=== PATIENT | female | born 1960 | race Caucasian/White ===

== ENCOUNTER 2016-11-06 11:24 | Emergency (ER) | payer MEDICARE, OTHER ==
[2016-11-06 14:34] LABS: Urine Bilirubin Negative (Negative); Urine Glucose Negative (Negative); Urine Nitrite Negative (Negative)
--- NOTE | 2016-11-06 17:08 | RAD ---
Indication: Urinary retention. Real-time sonography of the kidneys was performed. The right kidney measures 10.3 x 4.5 x 4.8 cm with fullness of the right renal collecting system. Left kidney measures 10.3 x 4.4 x 4.1 cm with no hydronephrosis. The spleen is visualized and may be slightly enlarged. IMPRESSION: The spleen may be slightly enlarged. No hydronephrosis is noted.
[2016-11-06 18:09] VITALS: BP 149/103
--- NOTE | 2016-12-16 11:36 | ED ---
GI/ HPI - HPI Summary HPI Summary: Patient presents with one week of burning urination, frequency and a sensation of "fullness" of her bladder. She has not been able to urinate for the past day and worries she has a UTI, since she has a history of these. She denies flank pain, fever, chills, or blood in her urine. She is bipolar and is having difficulty managing her thoughts around her pain, and as much as she hates seeking treatment, she thought she needed to be seen today. - History of Current Complaint Chief Complaint: EDUrogenitalProblems Time Seen by Provider: 11/06/16 14:15 Stated Complaint: PAINFUL TO URINATE Hx Obtained From: Patient Onset/Duration: Started Hours Ago, Atraumatic Timing: Constant Severity: Moderate Current Severity: Moderate Pain Intensity: 5 Location of Pain: Suprapubic Pain Characteristics: Dull, Aching, Pressure Associated Signs and Symptoms: Positive: UTI Symptoms Aggravating Factor(s): Nothing Alleviating Factor(s): Nothing - Additional Pertinent History Primary Care Physician: NANCY - Allergy/Home Medications Allergies/Adverse Reactions: Allergies Allergy/AdvReac Type Severity Reaction Status Date / Time Sulfa Drugs Allergy Unknown Unknown Verified 11/06/16 11:31 Reaction Details Oxycodone [From Oxycontin] AdvReac Severe "MADE ME Verified 11/06/16 11:31 SICK" Zolpidem [From Ambien] AdvReac Severe STIMULANT Verified 11/06/16 11:31 Chlorpromazine AdvReac See Comment Verified 11/06/16 11:31 [From Thorazine] SOME PSYCHIATRIC MEDS AdvReac Severe SEE Uncoded 11/06/16 11:31 COMMENTS PMH/Surg Hx/FS Hx/Imm Hx Endocrine/Hematology History: Reports: Hx Diabetes, Hx Thyroid Disease - Jana's, Hx Anemia - HAS INJECTIONS Cardiovascular History: Reports: Hx Hypertension, Hx Valvular Heart Disease - MVP Denies: Hx Congestive Heart Failure, Hx Pacemaker/ICD Respiratory History: Reports: Hx Asthma Denies: Hx Chronic Obstructive Pulmonary Disease (COPD) GI History: Reports: Hx Gastroesophageal Reflux Disease, Hx Ulcer - 1979 History: Denies: Hx Dialysis, Hx Renal Disease - HISTORIC RENAL INSUFF Musculoskeletal History: Reports: Hx Arthritis - KNEES, Hx Fibromyalgia, Hx Orthopedic Injury - right hip Denies: Other Musculoskeletal History Sensory History: Reports: Hx Contacts or Glasses Denies: Hx Hearing Aid Opthamlomology History: Reports: Hx Contacts or Glasses Neurological History: Reports: Hx Developmental Delay, Hx Headaches - AT TIMES Psychiatric History: Reports: Hx Anxiety - ON MEDS, Hx Depression - ON MEDS, Hx Inpatient Treatment - pt's [facility] counselor said pt admitted [facility] [place] [place] in 2015, Hx Community Mental Health Tx, Hx Schizophrenia, Hx Bipolar Disorder, Hx Suicide Attempt - unclear; pt does not admit to self harm, but admits frequent overdoses, Hx of Violent Episodes Against Others, Hx Substance Abuse, Other Psychiatric Issues/Disorders Denies: Hx Attention Deficit Hyperactivity Disorder, Hx Eating Disorder, Hx Panic Disorder, Hx Post Traumatic Stress Disorder - Surgical History Surgery Procedure, Year, and Place: PIE MAKER MACHINE SURG - ABLASION Hx Anesthesia Reactions: No Infectious Disease History: No Infectious Disease History: Denies: Hx Clostridium Difficile, Hx Hepatitis, Hx Human Immunodeficiency Virus (HIV), Hx of Known/Suspected MRSA, Hx Shingles, Hx Tuberculosis, Hx Known/ Suspected VRE, Hx Known/Suspected VRSA, History Other Infectious Disease - Rj traore, Traveled Outside the [place] in Last 30 Days - Family History Known Family History: Positive: None, Unknown - Patient is uncooperative - Social History Occupation: Disabled Lives: Alone Alcohol Use: Unknown Alcohol Amount: unknown; patient unresponsive Substance Use Type: Reports: None Substance Use Comment - Amount & Last Used: Unknown Smoking Status (MU): Former Smoker Type: Cigarettes Have You Smoked in the Last Year: No Review of Systems Negative: Fever, Chills Positive: Abdominal Pain - suprapubic fullness Positive: burning, frequency Positive: Anxious All Other Systems Reviewed And Are Negative: Yes Physical Exam - Summary Physical Exam Summary: Patient is agitated and laying on stretcher in no acute distress. Triage Information Reviewed: Yes Vital Signs On Initial Exam: Initial Vitals Temp Pulse Resp BP Pulse Ox 98.0 F 84 18 136/79 100 11/06/16 11:31 11/06/16 11:31 11/06/16 11:31 11/06/16 11:31 11/06/16 11:31 Vital Signs Reviewed: Yes Completion Of Physical Exam Limited Due To: Other - Patient will not allow me to touch her during exam Appearance: Positive: Well-Appearing, No Pain Distress, Obese Skin: Positive: Warm, Skin Color Reflects Adequate Perfusion, Dry, Soft Head/Face: Positive: Normal Head/Face Inspection Eyes: Positive: EOMI, FELIX, Conjunctiva Clear ENT: Positive: Hearing grossly normal Respiratory/Lung Sounds: Positive: Breath Sounds Present Cardiovascular: Positive: RRR Abdomen Description: Negative: Nontender - patient will not allow me to touch her for exam Neurological: Positive: Sensory/Motor Intact, Alert, Oriented to Person Place, Time Psychiatric: Positive: Anxious AVPU Assessment: Alert Diagnostics - Vital Signs Vital Signs Temp Pulse Resp BP Pulse Ox 11/06/16 17:57 98.6 F 95 18 149/103 97 11/06/16 13:35 97.8 F 102 18 147/94 100 11/06/16 12:34 98.0 F 90 18 144/90 98 11/06/16 11:31 98.0 F 84 18 136/79 100 - Laboratory Lab Results: Lab Results 11/06/16 Range/Units 13:35 Urine Color Colorless Urine Appearance Clear Urine pH 6.0 (5-9) Ur Specific [place] 1.001 L (1.010-1.030) Urine Protein Negative (Negative) Urine Ketones Negative (Negative) Urine Blood Negative (Negative) Urine Nitrate Negative (Negative) Urine Bilirubin Negative (Negative) Urine Urobilinogen Negative (Negative) Ur Leukocyte Esterase Negative (Negative) Urine Glucose Negative (Negative) Lab Statement: Any lab studies that have been ordered have been reviewed, and results considered in the medical decision making process. GIGU Course/Dx - Course Course Of Treatment: The patient's urine did not show an UTI, but she does have urinary retention of 509ml. I recommended urinary catheterization to avoid decompensation, but the patient refused due to her bipolar disorder. She believes she will not be able to handle to physical and psychologial effects of having the catheter in place to allow her urine to drain. She has opted to sign out AMA, with the understanding that she needs to return to the ED immediately if her symptoms worsen, and to follow-up with the urologist [facility]. - Diagnoses Differential Diagnoses - Female: Cystitis, Pyelonephritis, Renal Calculi, Renal Colic, Urinary Tract Infection, Ureteral Calculi Provider Diagnoses: Urinary retention with incomplete bladder emptying Discharge - Discharge Plan Condition: Stable Disposition: AGAINST MEDICAL ADVICE Patient Education Materials: Acute Urinary Retention in Women (ED) Referrals: Pamela Mccallum MD [Primary Care Provider] - Rusty Alba MD [Medical Doctor] - Additional Instructions: Call Dr. Alba's office Wednesday morning for an appointment [facility] for evaluation. Return to the emergency department immediately if you develop a fever or chills or can not void.
== END 2016-11-06 18:16 | disposition home or self-care (01) ==
LOC: ED 11:24
DX: R33.9 Retention of urine, unspecified (principal); R10.9 Unspecified abdominal pain; Z53.21 Procedure and treatment not carried out due to patient leaving prior to being seen by health care provider; Z87.891 Personal history of nicotine dependence
CPT/HCPCS: 76775; 81003; 99282

== ENCOUNTER 2020-12-25 17:27 | Inpatient (IN) ==
[2020-12-25] MEDS: NS 0.9% 1000 ml BAG 2,000 ML IV ONE ×2 (18:09→19:34)
[2020-12-25 18:36] LABS: ALT 17 U/L (7-52); AST 23 U/L (13-39); Albumin 4.3 g/dL (3.2-5.2); Albumin/Globulin Ratio 1.3 (1-3); Alkaline Phosphatase 77 U/L (34-104); Anion Gap 15 mmol/L (2-11); BUN/Creatinine Ratio 6.2 (8-20); Blood Urea Nitrogen 9 mg/dL (6-24); CO2 Carbon Dioxide 25 mmol/L (22-32); Calcium 10.2 mg/dL (8.6-10.3); Chloride 96 mmol/L (101-111); EGFR African American 44.5 (>60); EGFR Non-African American 36.8 (>60); Globulin 3.2 g/dL (2-4); Glucose 201 mg/dL (70-100); Potassium 3.1 mmol/L (3.5-5.0); Sodium 136 mmol/L (135-145); Total Protein 7.5 g/dL (6.4-8.9)
[2020-12-25 18:40] LABS: ABS Lymphocytes 0.8 10^3/ul (1.0-4.8); ABS Monocytes 0.3 10^3/ul (0-0.8); Eosinophil % 0.3 %; Hematocrit 44 % (35-47); Hemoglobin 14.8 g/dL (12.0-16.0); Lymphocyte % 6.7 %; Mean Corpuscular HGB Conc 34 g/dL (31-36); Mean Corpuscular Hemoglobin 31 pg (27-31); Mean Corpuscular Volume 91 fL (80-97); Mean Platelet Volume 7.8 fL (7.4-10.4); Platelet Count 248 10^3/uL (150-450); Red Blood Count 4.85 10^6 /uL (3.70-4.87); Red Cell Distribution Width 14 % (10-15); White Blood Count 11.1 10^3/uL (3.5-10.8)
[2020-12-25 18:43] LABS: Acetaminophen < 15 mcg/mL; Alcohol, S < 10 mg/dL (<10); Salicylate < 2.50 mg/dL (<30)
[2020-12-25] MEDS ORDERED: Potassium Chlor 20 meq TAB.ER PO ONE (18:52)
[2020-12-25] MEDS ORDERED: Iodixanol (CONTRAST) 320 MG/ML 100 ML SDV IV ONE (19:06)
[2020-12-25 19:21] LABS: Magnesium 2.1 mg/dL (1.9-2.7)
[2020-12-25 21:07] LABS: Urine Appearance Cloudy; Urine Bilirubin Negative (Negative); Urine Blood Negative (Negative); Urine Color Amber; Urine Glucose Negative (Negative); Urine Ketones Negative (Negative); Urine Nitrite Negative (Negative); Urine Protein Negative (Negative); Urine Specific Gravity 1.011 (1.002-1.030); Urine Urobilinogen Negative (Negative)
[2020-12-25 21:10] LABS: Urine Benzodiazepine Screen None Detected (None Detect); Urine Cannabinoids Screen None Detected (None Detect); Urine Opiates Screen None Detected (None Detect)
[2020-12-25 21:31] LABS: Urine Bacteria 2+ (Absent); Urine Red Blood Cell Absent (Absent); Urine Squamous Epithelial Cell Present (Absent); Urine White Blood Cell 3+(>20/hpf) (Absent)
[2020-12-25] MEDS: KCL 20 MEQ/100 ML IVPREMIX 20 MEQ/100 ML BAG IV SCH (21:39)
[2020-12-26] MEDS: KCL 20 MEQ/100 ML IVPREMIX 20 MEQ/100 ML BAG IV SCH (00:40)
[2020-12-26] MEDS ORDERED: NS 0.9% 1000 ml BAG 1,000 ML IV ONE (07:35)
[2020-12-26] MEDS ORDERED: Ondansetron 4 mg VIAL 2 MG/ML 2 ml VIAL IV ONE (07:35)
[2020-12-26] MEDS ORDERED: Al Hydrox/Mg Hydrox/Simet LIQ 30 ML UDC PO ONE (09:46)
[2020-12-26] MEDS ORDERED: Ondansetron 4 mg VIAL 2 MG/ML 2 ml VIAL IV PRN (13:40)
[2020-12-26] MEDS: Heparin 5000 UNITS/ML 1 mL VIAL SUBCUT SCH ×2 (14:13→22:05)
[2020-12-26] MEDS ORDERED: Magnesium Hydroxide LIQ 30 ML UDC PO PRN (14:44)
[2020-12-26] MEDS: cefTRIAXone 1 gm/50 mL NS BAG 1 GM/50 ML BAG IVPB SCH (16:34)
[2020-12-26 20:44] LABS: ABS Basophils 0.1 10^3/ul (0-0.2); ABS Eosinophils 0.2 10^3/ul (0-0.6); ABS Lymphocytes 1.3 10^3/ul (1.0-4.8); ABS Monocytes 0.5 10^3/ul (0-0.8); ABS Neutrophils 5.9 10^3/ul (1.5-7.7); Eosinophil % 2.1 %; Hematocrit 39 % (35-47); Hemoglobin 13.2 g/dL (12.0-16.0); Lymphocyte % 16.2 %; Mean Corpuscular HGB Conc 34 g/dL (31-36); Mean Corpuscular Hemoglobin 31 pg (27-31); Mean Corpuscular Volume 91 fL (80-97); Mean Platelet Volume 7.1 fL (7.4-10.4); Platelet Count 215 10^3/uL (150-450); Red Blood Count 4.32 10^6 /uL (3.70-4.87); Red Cell Distribution Width 14 % (10-15); White Blood Count 7.9 10^3/uL (3.5-10.8)
[2020-12-26 21:08] LABS: BUN/Creatinine Ratio 7.6 (8-20); C Reactive Protein 14.78 mg/L (<8.01); Calcium 9.2 mg/dL (8.6-10.3); EGFR African American 65.1 (>60); EGFR Non-African American 53.8 (>60); Potassium 3.7 mmol/L (3.5-5.0)
[2020-12-26] MEDS: Magnesium Hydroxide LIQ 30 ML UDC PO SCH (22:06)
[2020-12-27 05:43] LABS: TSH Ultra Thyroid Stim Horm 21.62 mcIU/mL (0.34-5.60)
[2020-12-27] MEDS: Heparin 5000 UNITS/ML 1 mL VIAL SUBCUT SCH ×2 (07:27→16:08)
[2020-12-27] MEDS: Magnesium Hydroxide LIQ 30 ML UDC PO SCH ×2 (09:53→21:25)
[2020-12-27] MEDS: Polyethylene Glycol 3350 17 GM PACKET PO PRN (16:08)
[2020-12-27] MEDS: Senna TAB 8.6 mg TAB PO PRN (16:08)
[2020-12-27] MEDS: cefTRIAXone 1 gm/50 mL NS BAG 1 GM/50 ML BAG IVPB SCH (16:08)
[2020-12-28] MEDS: Senna TAB 8.6 mg TAB PO PRN ×2 (00:15→19:35)
[2020-12-28] MEDS: Heparin 5000 UNITS/ML 1 mL VIAL SUBCUT SCH ×4 (00:15→23:12)
[2020-12-28 06:29] LABS: BUN/Creatinine Ratio 7.3 (8-20); Calcium 8.8 mg/dL (8.6-10.3); EGFR African American 72.2 (>60); EGFR Non-African American 59.7 (>60); Potassium 3.2 mmol/L (3.5-5.0)
[2020-12-28] MEDS ORDERED: Potassium Chloride LIQUID 20 MEQ/15 ML LIQUID PO ONE (07:33)
[2020-12-28] MEDS ORDERED: PEG 3000 GI LAVAGE 1 GALLON PO ONE (07:35)
[2020-12-28 07:55] LABS: Magnesium 2.8 mg/dL (1.9-2.7)
[2020-12-28] MEDS: Polyethylene Glycol 3350 17 GM PACKET PO SCH ×4 (09:12→19:35)
[2020-12-28] MEDS: Magnesium Hydroxide LIQ 30 ML UDC PO PRN ×2 (13:07→19:34)
[2020-12-28] MEDS: cefTRIAXone 1 gm/50 mL NS BAG 1 GM/50 ML BAG IVPB SCH (17:02)
[2020-12-28] MEDS ORDERED: Lactulose 30 ml UDC PO ONE (17:16)
[2020-12-28] MEDS ORDERED: Sodium Phosphate ADULT ENEMA 133 ML BTL PR ONE (17:19)
[2020-12-28] MEDS ORDERED: NS 0.9% w/ 40 Meq KCL 1000 ML 1,000 ML IV SCH (18:00)
[2020-12-29] MEDS: Heparin 5000 UNITS/ML 1 mL VIAL SUBCUT SCH ×3 (05:39→20:43)
[2020-12-29 07:03] LABS: BUN/Creatinine Ratio 8.4 (8-20); Calcium 9.1 mg/dL (8.6-10.3); EGFR African American 73.1 (>60); EGFR Non-African American 60.4 (>60); Potassium 4.2 mmol/L (3.5-5.0)
[2020-12-29] MEDS: Polyethylene Glycol 3350 17 GM PACKET PO SCH ×2 (07:47→07:50)
[2020-12-29] MEDS ORDERED: Iodixanol (CONTRAST) 320 MG/ML 100 ML SDV IV ONE (09:32)
[2020-12-29] MEDS ORDERED: NS 0.9% 1000 ml BAG 1,000 ML IV SCH (14:30)
[2020-12-29] MEDS: cefTRIAXone 1 gm/50 mL NS BAG 1 GM/50 ML BAG IVPB SCH (15:43)
[2020-12-30] MEDS: Heparin 5000 UNITS/ML 1 mL VIAL SUBCUT SCH ×3 (06:02→23:09)
[2020-12-30] MEDS: cefTRIAXone 1 gm/50 mL NS BAG 1 GM/50 ML BAG IVPB SCH (16:07)
[2020-12-31 06:47] LABS: BUN/Creatinine Ratio 7.9 (8-20); Calcium 8.7 mg/dL (8.6-10.3); EGFR African American 78.8 (>60); EGFR Non-African American 65.1 (>60); Potassium 3.5 mmol/L (3.5-5.0)
[2020-12-31] MEDS: Heparin 5000 UNITS/ML 1 mL VIAL SUBCUT SCH ×3 (07:41→23:14)
[2020-12-31] MEDS: Magnesium Hydroxide LIQ 30 ML UDC PO PRN ×2 (10:08→23:15)
[2020-12-31] MEDS: Polyethylene Glycol 3350 17 GM PACKET PO PRN (16:37)
[2020-12-31] MEDS: Senna TAB 8.6 mg TAB PO PRN (23:12)
[2021-01-01] MEDS: Heparin 5000 UNITS/ML 1 mL VIAL SUBCUT SCH ×3 (04:53→20:59)
[2021-01-01 05:32] LABS: Hematocrit 37 % (35-47); Mean Corpuscular HGB Conc 33 g/dL (31-36); Mean Corpuscular Hemoglobin 30 pg (27-31); Mean Corpuscular Volume 92 fL (80-97); Platelet Count 206 10^3/uL (150-450); Red Blood Count 3.97 10^6 /uL (3.70-4.87); Red Cell Distribution Width 14 % (10-15); White Blood Count 4.5 10^3/uL (3.5-10.8)
[2021-01-01 05:52] LABS: EGFR African American 79.9 (>60); Potassium 3.3 mmol/L (3.5-5.0)
[2021-01-01] MEDS ORDERED: Sodium Phosphate ADULT ENEMA 133 ML BTL PR ONE (14:34)
[2021-01-01] MEDS ORDERED: PEG 3000 GI LAVAGE 1 GALLON PO ONE (14:34)
[2021-01-02] MEDS: Heparin 5000 UNITS/ML 1 mL VIAL SUBCUT SCH ×3 (10:29→21:52)
[2021-01-02] MEDS ORDERED: Al Hydrox/Mg Hydrox/Simet LIQ 30 ML UDC PO ONE (10:45)
[2021-01-02 11:16] LABS: ABS Basophils 0.1 10^3/ul (0-0.2); ABS Eosinophils 0.1 10^3/ul (0-0.6); ABS Monocytes 0.3 10^3/ul (0-0.8); ABS Neutrophils 2.8 10^3/ul (1.5-7.7); Hematocrit 35 % (35-47); Hemoglobin 11.5 g/dL (12.0-16.0); Lymphocyte % 23.6 %; Mean Corpuscular HGB Conc 33 g/dL (31-36); Mean Corpuscular Hemoglobin 30 pg (27-31); Mean Corpuscular Volume 92 fL (80-97); Mean Platelet Volume 6.4 fL (7.4-10.4); Nucleated Red Blood Cells % 0.1; Platelet Count 230 10^3/uL (150-450); Red Blood Count 3.78 10^6 /uL (3.70-4.87); Red Cell Distribution Width 14 % (10-15); White Blood Count 4.3 10^3/uL (3.5-10.8)
[2021-01-02 11:33] LABS: Albumin/Globulin Ratio 1.3 (1-3); Calcium 8.8 mg/dL (8.6-10.3); EGFR African American 79.9 (>60); Globulin 2.4 g/dL (2-4); Potassium 3.5 mmol/L (3.5-5.0); Total Bilirubin 0.5 mg/dL (0.2-1.0); Total Protein 5.4 g/dL (6.4-8.9)
[2021-01-03] MEDS: Heparin 5000 UNITS/ML 1 mL VIAL SUBCUT SCH ×3 (05:19→20:27)
[2021-01-03] MEDS ORDERED: Midazolam 10 mg/10 ml VIAL 1 mg/ml 10 ml VIAL (10 mg) ONE (16:10)
[2021-01-03] MEDS ORDERED: fentaNYL 100 mcg/2 ml 50 MCG/ML VIAL ONE (16:10)
[2021-01-04 05:16] LABS: ABS Eosinophils 0.1 10^3/ul (0-0.6); ABS Lymphocytes 1.4 10^3/ul (1.0-4.8); ABS Monocytes 0.3 10^3/ul (0-0.8); ABS Neutrophils 2.5 10^3/ul (1.5-7.7); Eosinophil % 2.9 %; Hematocrit 34 % (35-47); Hemoglobin 11.7 g/dL (12.0-16.0); Lymphocyte % 31.8 %; Mean Corpuscular HGB Conc 34 g/dL (31-36); Mean Corpuscular Hemoglobin 31 pg (27-31); Mean Corpuscular Volume 91 fL (80-97); Mean Platelet Volume 6.1 fL (7.4-10.4); Nucleated Red Blood Cells % 0.1; Platelet Count 234 10^3/uL (150-450); Red Blood Count 3.79 10^6 /uL (3.70-4.87); Red Cell Distribution Width 14 % (10-15); White Blood Count 4.3 10^3/uL (3.5-10.8)
[2021-01-04 05:50] LABS: Calcium 8.9 mg/dL (8.6-10.3); EGFR African American 75.9 (>60); EGFR Non-African American 62.7 (>60); Potassium 3.6 mmol/L (3.5-5.0)
[2021-01-04] MEDS: Heparin 5000 UNITS/ML 1 mL VIAL SUBCUT SCH ×2 (05:52→15:22)
[2021-01-04] MEDS: Polyethylene Glycol 3350 17 GM PACKET PO SCH (11:49)
[2021-01-04 14:12] LABS: C Reactive Protein 22.66 mg/L (<8.01)
[2021-01-04] MEDS ORDERED: Magic MouthWash1-BEN/MAAL/LIDO 180 ML BTL SWISH SWAL SCH (16:00)
[2021-01-04] MEDS: Magic MouthWash1-BEN/MAAL/LIDO 180 ML BTL SWISH SWAL PRN (17:54)
[2021-01-05] MEDS: Senna TAB 8.6 mg TAB PO SCH ×2 (00:52→23:40)
[2021-01-05] MEDS: Heparin 5000 UNITS/ML 1 mL VIAL SUBCUT SCH ×4 (00:54→23:51)
[2021-01-05 08:56] LABS: Calcium 9.1 mg/dL (8.6-10.3); EGFR African American 70.5 (>60); EGFR Non-African American 58.3 (>60); Potassium 3.5 mmol/L (3.5-5.0)
[2021-01-05] MEDS: Polyethylene Glycol 3350 17 GM PACKET PO SCH (09:03)
[2021-01-05] MEDS: Magic MouthWash1-BEN/MAAL/LIDO 180 ML BTL SWISH SWAL PRN (09:03)
[2021-01-05 09:39] LABS: Thyroid Peroxidase Antibodies 3.08 IU/mL (<9)
[2021-01-05 09:53] LABS: Thyroglobulin Antibody II 124.4 IU/mL (<4.0)
[2021-01-05] MEDS ORDERED: Polyethylene Glycol 3350 17 GM PACKET PO SCH (15:51)
[2021-01-05] MEDS: Magnesium Hydroxide LIQ 30 ML UDC PO SCH (23:40)
[2021-01-06] MEDS: Magnesium Hydroxide LIQ 30 ML UDC PO SCH (08:24)
[2021-01-06] MEDS: Heparin 5000 UNITS/ML 1 mL VIAL SUBCUT SCH (08:24)
[2021-01-06 15:43] VITALS: BP 114/66
[2021-01-06 16:29] LABS: Urine Appearance Cloudy; Urine Bilirubin Negative (Negative); Urine Blood Negative (Negative); Urine Color Yellow; Urine Glucose Negative (Negative); Urine Ketones Negative (Negative); Urine Nitrite Negative (Negative); Urine Protein Negative (Negative); Urine Specific Gravity 1.013 (1.002-1.030); Urine Urobilinogen Negative (Negative)
[2021-01-06 16:39] LABS: Urine Bacteria 1+ (Absent); Urine Red Blood Cell Trace(0-2/hpf) (Absent); Urine Squamous Epithelial Cell Present (Absent); Urine White Blood Cell 2+(11-20/hpf) (Absent)
[2021-01-07 16:13] LABS: Free T4 1.1 ng/dL (0.9 - 1.7)
[2021-01-08 08:27] LABS: Thyroperoxidase Antibody 3.5 IU/mL (<9.0)
== END 2021-01-06 16:45 | DRG 392 ==
LOC: ED 17:27 → MED 17:27 → BSU 12-26 17:41 → MED 12-26 18:10
PROVIDERS: ADMIT Internal Medicine; ATTEND Hospitalist

== ENCOUNTER 2021-10-31 13:05 | Inpatient (IN) ==
[2021-10-31] MEDS ORDERED: Lactated Ringers 1000 ml BAG 1,000 ML IV ONE ×2 (14:06→15:31)
[2021-10-31 14:40] LABS: ABS Lymphocytes 0.3 10^3/ul (1.0-4.8); ABS Monocytes 0.2 10^3/ul (0-0.8); ABS Neutrophils 6.5 10^3/ul (1.5-7.7); Hematocrit 48 % (35-47); Hemoglobin 16.3 g/dL (12.0-16.0); Lymphocyte % 3.7 %; Mean Corpuscular HGB Conc 34 g/dL (31-36); Mean Corpuscular Hemoglobin 29 pg (27-31); Mean Corpuscular Volume 86 fL (80-97); Mean Platelet Volume 8.1 fL (7.4-10.4); Platelet Count 118 10^3/uL (150-450); Red Blood Count 5.59 10^6 /uL (3.70-4.87); Red Cell Distribution Width 13 % (10-15); White Blood Count 6.9 10^3/uL (3.5-10.8)
[2021-10-31 14:52] LABS: Urine Appearance Cloudy; Urine Bilirubin Negative (Negative); Urine Blood 1+ (Negative); Urine Color Amber; Urine Glucose Negative (Negative); Urine Ketones Negative (Negative); Urine Nitrite Negative (Negative); Urine Protein 1+(30 mg/dL) (Negative); Urine Specific Gravity 1.017 (1.002-1.030); Urine Urobilinogen Positive (Negative)
[2021-10-31 14:55] LABS: Urine Bacteria 3+ (Absent); Urine Red Blood Cell Trace(0-2/hpf) (Absent); Urine Squamous Epithelial Cell Present (Absent); Urine White Blood Cell 2+(11-20/hpf) (Absent)
[2021-10-31 15:06] LABS: ALT 14 U/L (7-52); AST 10 U/L (13-39); Albumin 3.5 g/dL (3.2-5.2); Alkaline Phosphatase 62 U/L (35-149); Anion Gap 15 mmol/L (2-11); Blood Urea Nitrogen 34 mg/dL (6-24); CO2 Carbon Dioxide 29 mmol/L (22-32); Calcium 9.3 mg/dL (8.6-10.3); Chloride 93 mmol/L (101-111); Globulin 3.4 g/dL (2-4); Glucose 154 mg/dL (70-100); Potassium 3.3 mmol/L (3.5-5.0); Sodium 137 mmol/L (135-145); Total Protein 6.9 g/dL (6.4-8.9); eGFR CKD-EPI 61.9 (>60)
[2021-10-31 15:21] LABS: Troponin I 0.03 ng/mL (<0.03)
[2021-10-31] MEDS ORDERED: cefTRIAXone 1 gm/50 mL NS BAG 1 GM/50 ML BAG IV ONE (16:25)
[2021-10-31 18:35] LABS: Troponin I 0.02 ng/mL (<0.03)
[2021-10-31 20:53] LABS: Magnesium 2.7 mg/dL (1.9-2.7)
[2021-10-31] MEDS: NS 0.9% 1000 ml BAG 1,000 ML IV SCH (20:59)
[2021-10-31] MEDS ORDERED: Remdesivir 100 mg Vial 200 MG in NS 0.9% 250 ml 210 ML IV ONE (21:00)
[2021-10-31 21:23] LABS: TSH Ultra Thyroid Stim Horm 1.21 mcIU/mL (0.34-5.60)
[2021-10-31 21:24] LABS: INR 1.24 (0.86-1.15)
[2021-10-31 21:49] LABS: C Reactive Protein 164.71 mg/L (<8.01)
[2021-10-31 22:17] LABS: Urine Benzodiazepine Screen None Detected (None Detect); Urine Cannabinoids Screen None Detected (None Detect); Urine Opiates Screen None Detected (None Detect)
[2021-10-31] MEDS: Enoxaparin 40 MG/0.4 ML SYR SUBCUT SCH (23:23)
[2021-11-01] MEDS ORDERED: NS 0.9% 500 ml BAG 500 ML IV ONE (00:12)
[2021-11-01 01:24] LABS: Acetaminophen < 15 mcg/mL; Salicylate < 2.50 mg/dL (<30)
[2021-11-01] MEDS: Nystatin TOP POWDER 15 GM BTL TOPICAL SCH ×4 (02:57→19:29)
[2021-11-01] MEDS: NS 0.9% 1000 ml BAG 1,000 ML IV SCH ×2 (03:06→21:53)
[2021-11-01 03:46] LABS: Albumin 2.6 g/dL (3.2-5.2); Calcium 7.8 mg/dL (8.6-10.3); Direct Bilirubin 0.2 mg/dL (0.03-0.18); Indirect Bilirubin 0.5 mg/dL (0.3-1.0); Potassium 3.6 mmol/L (3.5-5.0); Total Bilirubin 0.7 mg/dL (0.2-1.0)
[2021-11-01 03:52] LABS: Albumin/Globulin Ratio 1.2 (1-3); Globulin 2.2 g/dL (2-4); Total Protein 4.8 g/dL (6.4-8.9); eGFR CKD-EPI 97.9 (>60)
[2021-11-01] MEDS ORDERED: Piperacillin/Tazobac ADVAN 3.375 GM in NS 0.9% 100 ml BAG 100 ML IV ONE (04:35)
[2021-11-01] MEDS ORDERED: Zosyn per Pharmacy NOTE FOLLOW UP SCH (05:00)
[2021-11-01 09:23] LABS: ABS Lymphocytes 0.3 10^3/ul (1.0-4.8); ABS Monocytes 0.1 10^3/ul (0-0.8); ABS Neutrophils 3.5 10^3/ul (1.5-7.7); Eosinophil % 0.3 %; Hematocrit 42 % (35-47); Hemoglobin 13.8 g/dL (12.0-16.0); Lymphocyte % 7.2 %; Mean Corpuscular HGB Conc 33 g/dL (31-36); Mean Corpuscular Hemoglobin 29 pg (27-31); Mean Corpuscular Volume 87 fL (80-97); Nucleated Red Blood Cells % 0.1; Platelet Count 64 10^3/uL (150-450); Red Blood Count 4.77 10^6 /uL (3.70-4.87); Red Cell Distribution Width 14 % (10-15); White Blood Count 3.9 10^3/uL (3.5-10.8)
[2021-11-01] MEDS ORDERED: Iodixanol (CONTRAST) 320 MG/ML 100 ML SDV IV ONE (10:03)
[2021-11-01] MEDS: CMCS: LINACLOTIDE 72 MCG CAP (NF) PO SCH (10:36)
[2021-11-01] MEDS ORDERED: ZOSYN 3.375 GM Q8H per EXTENDED INFUSION IV SCH (11:30)
[2021-11-01] MEDS ORDERED: Azithromycin 500 mg/250 ml NS 500 MG/250 ML BAG IVPB ONE (14:03)
[2021-11-01 14:25] LABS: INR 1.3 (0.86-1.15)
[2021-11-01] MEDS ORDERED: cefTRIAXone 1 gm/50 mL NS BAG 1 GM/50 ML BAG IVPB SCH (15:00)
[2021-11-01] MEDS: Enoxaparin 40 MG/0.4 ML SYR SUBCUT SCH (19:29)
[2021-11-01] MEDS: Remdesivir 100 mg Vial 100 MG in NS 0.9% 250 ml 230 ML IV SCH (19:30)
[2021-11-02 06:48] LABS: ABS Lymphocytes 0.3 10^3/ul (1.0-4.8); ABS Neutrophils 3.4 10^3/ul (1.5-7.7); Eosinophil % 0.1 %; Hematocrit 37 % (35-47); Hemoglobin 12.3 g/dL (12.0-16.0); Lymphocyte % 8.1 %; Mean Corpuscular HGB Conc 33 g/dL (31-36); Mean Corpuscular Hemoglobin 29 pg (27-31); Mean Corpuscular Volume 87 fL (80-97); Mean Platelet Volume 7.5 fL (7.4-10.4); Platelet Count 58 10^3/uL (150-450); Red Blood Count 4.25 10^6 /uL (3.70-4.87); Red Cell Distribution Width 13 % (10-15); White Blood Count 3.7 10^3/uL (3.5-10.8)
[2021-11-02 06:49] LABS: Albumin 2.6 g/dL (3.2-5.2); Albumin/Globulin Ratio 1.1 (1-3); Calcium 7.5 mg/dL (8.6-10.3); Globulin 2.3 g/dL (2-4); Potassium 3.5 mmol/L (3.5-5.0); Total Bilirubin 0.6 mg/dL (0.2-1.0); Total Protein 4.9 g/dL (6.4-8.9)
[2021-11-02 07:00] LABS: INR 1.33 (0.86-1.15)
[2021-11-02] MEDS: CMCS: LINACLOTIDE 72 MCG CAP (NF) PO SCH (07:59)
[2021-11-02] MEDS: Nystatin TOP POWDER 15 GM BTL TOPICAL SCH ×4 (07:59→23:15)
[2021-11-02] MEDS ORDERED: ZOSYN 3.375 GM x ONE DOSE over 30 miuntes IV (11:00)
[2021-11-02] MEDS: NS 0.9% 1000 ml BAG 1,000 ML IV SCH (11:49)
[2021-11-02] MEDS ORDERED: Piperacillin/Tazobac ADVAN 3.375 GM in NS 0.9% 100 ml BAG 100 ML IV SCH (15:00)
[2021-11-02] MEDS: Piperacillin/Tazobac ADVAN 3.375 GM in NS 0.9% 100 ml BAG 100 ML IV SCH (17:12)
[2021-11-02] MEDS: Remdesivir 100 mg Vial 100 MG in NS 0.9% 250 ml 230 ML IV SCH ×2 (19:54→22:45)
[2021-11-03] MEDS: Piperacillin/Tazobac ADVAN 3.375 GM in NS 0.9% 100 ml BAG 100 ML IV SCH ×2 (01:42→08:50)
[2021-11-03 06:44] LABS: ABS Lymphocytes 0.6 10^3/ul (1.0-4.8); ABS Monocytes 0.1 10^3/ul (0-0.8); ABS Neutrophils 4.1 10^3/ul (1.5-7.7); Eosinophil % 0.2 %; Hematocrit 36 % (35-47); Hemoglobin 11.9 g/dL (12.0-16.0); Lymphocyte % 11.8 %; Mean Corpuscular HGB Conc 33 g/dL (31-36); Mean Corpuscular Hemoglobin 29 pg (27-31); Mean Corpuscular Volume 87 fL (80-97); Mean Platelet Volume 7.4 fL (7.4-10.4); Platelet Count 50 10^3/uL (150-450); Red Cell Distribution Width 14 % (10-15); White Blood Count 4.7 10^3/uL (3.5-10.8)
[2021-11-03 06:57] LABS: INR 1.29 (0.86-1.15)
[2021-11-03 06:59] LABS: Albumin 2.6 g/dL (3.2-5.2); Albumin/Globulin Ratio 1.1 (1-3); Calcium 7.9 mg/dL (8.6-10.3); Globulin 2.3 g/dL (2-4); Total Bilirubin 0.7 mg/dL (0.2-1.0); Total Protein 4.9 g/dL (6.4-8.9); eGFR CKD-EPI 104.6 (>60)
[2021-11-03] MEDS ORDERED: Potassium Chlor 10 meq TAB PO ONE (08:11)
[2021-11-03] MEDS: Nystatin TOP POWDER 15 GM BTL TOPICAL SCH ×3 (08:51→20:20)
[2021-11-03] MEDS: CMCS: LINACLOTIDE 72 MCG CAP (NF) PO SCH (08:51)
[2021-11-03] MEDS: KCL 20 MEQ/100 ML IVPREMIX 20 MEQ/100 ML BAG IV SCH ×2 (10:20→12:51)
[2021-11-03 13:14] LABS: Urine Appearance Clear; Urine Bilirubin Negative (Negative); Urine Blood Negative (Negative); Urine Color Amber; Urine Glucose Negative (Negative); Urine Ketones 1+ (Negative); Urine Nitrite Negative (Negative); Urine Protein 1+(30 mg/dL) (Negative); Urine Specific Gravity 1.033 (1.002-1.030); Urine Urobilinogen Negative (Negative)
[2021-11-03 13:19] LABS: Urine Bacteria Absent (Absent); Urine Red Blood Cell Absent (Absent); Urine Squamous Epithelial Cell Present (Absent); Urine White Blood Cell 3+(>20/hpf) (Absent)
[2021-11-03] MEDS: Meropenem 1 GM PREMIX(*) 1 GM/50 ML BAG IV SCH ×2 (14:11→20:10)
[2021-11-04] MEDS: Meropenem 1 GM PREMIX(*) 1 GM/50 ML BAG IV SCH ×3 (04:38→19:32)
[2021-11-04 05:49] LABS: Hematocrit 34 % (35-47); Hemoglobin 11.4 g/dL (12.0-16.0); Mean Corpuscular HGB Conc 34 g/dL (31-36); Mean Corpuscular Hemoglobin 29 pg (27-31); Mean Corpuscular Volume 85 fL (80-97); Mean Platelet Volume 7.3 fL (7.4-10.4); Platelet Count 35 10^3/uL (150-450); Red Blood Count 3.92 10^6 /uL (3.70-4.87); Red Cell Distribution Width 14 % (10-15); White Blood Count 4.5 10^3/uL (3.5-10.8)
[2021-11-04 05:58] LABS: Albumin 2.5 g/dL (3.2-5.2); CO2 Carbon Dioxide 21 mmol/L (22-32); Calcium 7.8 mg/dL (8.6-10.3)
[2021-11-04 06:04] LABS: ALT 10 U/L (7-52); Albumin/Globulin Ratio 1.1 (1-3); Alkaline Phosphatase 48 U/L (35-149); Blood Urea Nitrogen 15 mg/dL (6-24); C Reactive Protein 115.95 mg/L (<8.01); Globulin 2.2 g/dL (2-4); Glucose 76 mg/dL (70-100); Total Protein 4.7 g/dL (6.4-8.9); eGFR CKD-EPI 107.5 (>60)
[2021-11-04 06:13] LABS: ABS Lymphocytes 0.6 10^3/ul (1.0-4.8); ABS Monocytes 0.1 10^3/ul (0-0.8); ABS Neutrophils 3.8 10^3/ul (1.5-7.7); Eosinophil % 0.1 %; Lymphocyte % 12.8 %; Nucleated Red Blood Cells % 0.1
[2021-11-04 06:20] LABS: INR 1.3 (0.86-1.15)
[2021-11-04 06:22] LABS: Anion Gap 12 mmol/L (2-11); Chloride 114 mmol/L (101-111); Sodium 147 mmol/L (135-145)
[2021-11-04] MEDS: CMCS: LINACLOTIDE 72 MCG CAP (NF) PO SCH (09:49)
[2021-11-04] MEDS: Nystatin TOP POWDER 15 GM BTL TOPICAL SCH ×3 (09:49→20:30)
[2021-11-04] MEDS ORDERED: D5W 1000 ml BAG 1,000 ML IV SCH ×3 (10:00→17:42)
[2021-11-04 13:07] LABS: Blood Urea Nitrogen 15 mg/dL (6-24); CO2 Carbon Dioxide 23 mmol/L (22-32); Calcium 7.9 mg/dL (8.6-10.3); Glucose 99 mg/dL (70-100)
[2021-11-04 13:08] LABS: Anion Gap 9 mmol/L (2-11); Chloride 114 mmol/L (101-111); Sodium 146 mmol/L (135-145)
[2021-11-04 13:09] LABS: Potassium, Whole Blood 3.4 mmol/L (3.4-4.5)
[2021-11-04] MEDS: Haloperidol 5 mg/ml SDV IV/IM 5 MG/ML AMP IV SLOW PU SCH (13:52)
[2021-11-04 17:17] LABS: Potassium 3.2 mmol/L (3.5-5.0)
[2021-11-04 20:20] LABS: Venous Bicarbonate HCO3 29.1 mmol/L (24-28)
[2021-11-04] MEDS: KCL 20 MEQ/100 ML IVPREMIX 20 MEQ/100 ML BAG IV SCH (20:28)
[2021-11-04 20:31] LABS: Calcium 7.9 mg/dL (8.6-10.3); Potassium 3.2 mmol/L (3.5-5.0); eGFR CKD-EPI 109.6 (>60)
[2021-11-05] LABS: Calcium 7.9 mg/dL (8.6-10.3); Potassium 3.7 mmol/L (3.5-5.0)
[2021-11-05] MEDS: KCL 20 MEQ/100 ML IVPREMIX 20 MEQ/100 ML BAG IV SCH ×2 (00:29→05:20)
[2021-11-05] MEDS: Meropenem 1 GM PREMIX(*) 1 GM/50 ML BAG IV SCH ×3 (04:39→20:45)
[2021-11-05] MEDS ORDERED: KCL 20 MEQ/100 ML IVPREMIX 20 MEQ/100 ML BAG ONE (05:17)
[2021-11-05 05:53] LABS: Hematocrit 34 % (35-47); Hemoglobin 11.4 g/dL (12.0-16.0); Mean Corpuscular HGB Conc 34 g/dL (31-36); Mean Corpuscular Hemoglobin 29 pg (27-31); Mean Corpuscular Volume 85 fL (80-97); Mean Platelet Volume 7.3 fL (7.4-10.4); Platelet Count 25 10^3/uL (150-450); Red Blood Count 3.97 10^6 /uL (3.70-4.87); Red Cell Distribution Width 14 % (10-15); White Blood Count 4.4 10^3/uL (3.5-10.8)
[2021-11-05 05:59] LABS: Activated Partial Thrombo Time 28.1 seconds (26.0-38.0); INR 1.13 (0.86-1.15)
[2021-11-05 06:13] LABS: Albumin 2.6 g/dL (3.2-5.2); Albumin/Globulin Ratio 1.2 (1-3); Calcium 7.9 mg/dL (8.6-10.3); Globulin 2.2 g/dL (2-4); Potassium 3.6 mmol/L (3.5-5.0); Total Protein 4.8 g/dL (6.4-8.9); eGFR CKD-EPI 110.2 (>60)
[2021-11-05] MEDS: Nystatin TOP POWDER 15 GM BTL TOPICAL SCH ×3 (09:54→20:54)
[2021-11-05] MEDS: Haloperidol 5 mg/ml SDV IV/IM 5 MG/ML AMP IV SLOW PU SCH (09:54)
[2021-11-05] MEDS: CMCS: LINACLOTIDE 72 MCG CAP (NF) PO SCH (09:55)
[2021-11-05] MEDS: D5W 1000 ml BAG 1,000 ML IV SCH ×2 (11:52→14:41)
[2021-11-05 12:33] LABS: Potassium 3.5 mmol/L (3.5-5.0); eGFR CKD-EPI 110.8 (>60)
[2021-11-05 14:21] LABS: ABS Lymphocytes 0.7 10^3/ul (1.0-4.8); ABS Monocytes 0.2 10^3/ul (0-0.8); ABS Neutrophils 3.5 10^3/ul (1.5-7.7); Eosinophil % 0.3 %; Nucleated Red Blood Cells % 0.2
[2021-11-05] MEDS ORDERED: Dexamethasone IV 4 MG/ML 5 ML VIAL (20 MG) ONE (15:51)
[2021-11-05] MEDS: Acetaminophen IV 1 GM/100ML 100 ML IV PRN (15:57)
[2021-11-05] MEDS ORDERED: Lorazepam PYXIS KEY PRN (17:05)
[2021-11-05] MEDS ORDERED: LORazepam 2 mg VIAL 1 ml IV PUSH ONE (17:06)
[2021-11-05] MEDS: Dexamethasone IV 20 MG in NS 0.9% 50 ML 50 ML IVPB SCH (17:08)
[2021-11-05 20:37] LABS: Thyroid Peroxidase Antibodies 1.02 IU/mL (<9)
[2021-11-05 20:50] LABS: Thyroglobulin Antibody II 13.5 IU/mL (<4.0)
[2021-11-05 21:24] LABS: HIT ELISA 0.138 OD (<0.400); Heparin PF4 Antibody Interp Negative (Negative)
[2021-11-06] MEDS: Meropenem 1 GM PREMIX(*) 1 GM/50 ML BAG IV SCH ×3 (04:45→22:11)
[2021-11-06 05:56] LABS: Hematocrit 33 % (35-47); Hemoglobin 11.1 g/dL (12.0-16.0); Mean Corpuscular HGB Conc 34 g/dL (31-36); Mean Corpuscular Hemoglobin 28 pg (27-31); Mean Corpuscular Volume 85 fL (80-97); Mean Platelet Volume 8.5 fL (7.4-10.4); Platelet Count 16 10^3/uL (150-450); Red Blood Count 3.92 10^6 /uL (3.70-4.87); Red Cell Distribution Width 13 % (10-15); White Blood Count 1.8 10^3/uL (3.5-10.8)
[2021-11-06 06:00] LABS: Calcium 7.9 mg/dL (8.6-10.3); Magnesium 1.8 mg/dL (1.9-2.7); Phosphorus 1.5 mg/dL (2.5-5.0); Potassium 3.8 mmol/L (3.5-5.0); eGFR CKD-EPI 111.4 (>60)
[2021-11-06 06:42] LABS: ABS Lymphocytes 0.3 10^3/ul (1.0-4.8); ABS Neutrophils 1.5 10^3/ul (1.5-7.7); Nucleated Red Blood Cells % 0.2
[2021-11-06] MEDS: Levothyroxine 100 MCG/5 ML VIAL IV SCH (06:45)
[2021-11-06] MEDS: Haloperidol 5 mg/ml SDV IV/IM 5 MG/ML AMP IV SLOW PU SCH (10:28)
[2021-11-06] MEDS: CMCS: LINACLOTIDE 72 MCG CAP (NF) PO SCH (11:35)
[2021-11-06] MEDS: Nystatin TOP POWDER 15 GM BTL TOPICAL SCH ×3 (11:35→22:11)
[2021-11-06] MEDS: Dexamethasone IV 20 MG in NS 0.9% 50 ML 50 ML IVPB SCH (11:36)
[2021-11-06] MEDS ORDERED: LORazepam 2 mg VIAL 1 ml IV PUSH PRN (11:39)
[2021-11-06] MEDS ORDERED: Lorazepam PYXIS KEY PRN (11:39)
[2021-11-07] MEDS: Meropenem 1 GM PREMIX(*) 1 GM/50 ML BAG IV SCH ×3 (04:53→20:01)
[2021-11-07] MEDS: Levothyroxine 100 MCG/5 ML VIAL IV SCH (04:58)
[2021-11-07 05:22] LABS: RBC Retic Count 3.87 10^6/uL (3.70-4.87); Red Blood Count 3.87 10^6 /uL (3.70-4.87)
[2021-11-07 05:29] LABS: Magnesium 1.8 mg/dL (1.9-2.7); Phosphorus 1.3 mg/dL (2.5-5.0); Potassium 3.2 mmol/L (3.5-5.0)
[2021-11-07 05:39] LABS: ABS Lymphocytes 0.5 10^3/ul (1.0-4.8); ABS Monocytes 0.1 10^3/ul (0-0.8); ABS Neutrophils 4.2 10^3/ul (1.5-7.7); Corrected Retic Count 0.1 % (0.5-1.5); Hematocrit 33 % (35-47); Hematocrit for Retic CNT 33 % (35-47); Hemoglobin 11.1 g/dL (12.0-16.0); Lymphocyte % 9.8 %; Mean Corpuscular HGB Conc 34 g/dL (31-36); Mean Corpuscular Hemoglobin 29 pg (27-31); Mean Corpuscular Volume 85 fL (80-97); Mean Platelet Volume 8.7 fL (7.4-10.4); Nucleated Red Blood Cells % 0.2; Platelet Count 16 10^3/uL (150-450); Red Cell Distribution Width 13 % (10-15); White Blood Count 4.8 10^3/uL (3.5-10.8)
[2021-11-07 06:29] LABS: Folate 9.02 ng/mL (5.90-24.80)
[2021-11-07] MEDS ORDERED: Magnesium Sulfate IV 1GM/100ML 1 GM/100 ML BAG IV ONE (07:53)
[2021-11-07] MEDS ORDERED: Potassium Phosphate IV 10 MMOLE in NS 0.9% 250 ml 250 ML IVPB ONE (09:00)
[2021-11-07] MEDS: Haloperidol 5 mg/ml SDV IV/IM 5 MG/ML AMP IV SLOW PU SCH (10:23)
[2021-11-07] MEDS: CMCS: LINACLOTIDE 72 MCG CAP (NF) PO SCH (10:23)
[2021-11-07] MEDS: Nystatin TOP POWDER 15 GM BTL TOPICAL SCH ×3 (10:37→21:07)
[2021-11-07] MEDS ORDERED: Buffered Lidocaine 1% SYRIN 1 ml INTRADERM ONE (12:01)
[2021-11-07 13:47] LABS: HIV 4th Generation Nonreactive (Nonreactive)
[2021-11-07] MEDS: Thiamine 100 MG/ML 2 ml VIAL 500 MG in NS 0.9% 250 ml 250 ML IV SCH (17:46)
[2021-11-07] MEDS: Dexamethasone IV 20 MG in NS 0.9% 50 ML 50 ML IVPB SCH (17:47)
[2021-11-08] MEDS: Meropenem 1 GM PREMIX(*) 1 GM/50 ML BAG IV SCH ×3 (05:45→20:21)
[2021-11-08] MEDS: Levothyroxine 100 MCG/5 ML VIAL IV SCH (06:22)
[2021-11-08 06:26] LABS: ABS Lymphocytes 0.5 10^3/ul (1.0-4.8); ABS Monocytes 0.1 10^3/ul (0-0.8); ABS Neutrophils 6.5 10^3/ul (1.5-7.7); Hematocrit 30 % (35-47); Hemoglobin 10.2 g/dL (12.0-16.0); Lymphocyte % 6.6 %; Mean Corpuscular HGB Conc 35 g/dL (31-36); Mean Corpuscular Hemoglobin 29 pg (27-31); Mean Corpuscular Volume 84 fL (80-97); Mean Platelet Volume 8.7 fL (7.4-10.4); Nucleated Red Blood Cells % 0.1; Platelet Count 18 10^3/uL (150-450); Red Blood Count 3.51 10^6 /uL (3.70-4.87); Red Cell Distribution Width 13 % (10-15); White Blood Count 7.1 10^3/uL (3.5-10.8)
[2021-11-08 06:39] LABS: Albumin 2.8 g/dL (3.2-5.2); Albumin/Globulin Ratio 1.5 (1-3); Calcium 7.9 mg/dL (8.6-10.3); Globulin 1.9 g/dL (2-4); Phosphorus 1.4 mg/dL (2.5-5.0); Potassium 3.5 mmol/L (3.5-5.0); Total Bilirubin 0.9 mg/dL (0.2-1.0); Total Protein 4.7 g/dL (6.4-8.9); eGFR CKD-EPI 118.5 (>60)
[2021-11-08] MEDS ORDERED: Dexamethasone IV 4 MG/ML 5 ML VIAL (20 MG) ONE (08:53)
[2021-11-08] MEDS: Potassium Phosphate IV 15 MMOLE in NS 0.9% 250 ml 250 ML IVPB ONE ×2 (09:03→09:45)
[2021-11-08] MEDS: Haloperidol 5 mg/ml SDV IV/IM 5 MG/ML AMP IV SLOW PU SCH (09:04)
[2021-11-08] MEDS: Nystatin TOP POWDER 15 GM BTL TOPICAL SCH ×3 (09:08→20:21)
[2021-11-08] MEDS: Dexamethasone IV 20 MG in NS 0.9% 50 ML 50 ML IVPB SCH (09:12)
[2021-11-08] MEDS: Thiamine 100 MG/ML 2 ml VIAL 500 MG in NS 0.9% 250 ml 250 ML IV SCH (09:44)
[2021-11-08] MEDS: CMCS: LINACLOTIDE 72 MCG CAP (NF) PO SCH (13:58)
[2021-11-08] MEDS: Lactated Ringers 1000 ml BAG 1,000 ML IV SCH (16:43)
[2021-11-09] MEDS: Lactated Ringers 1000 ml BAG 1,000 ML IV SCH ×2 (02:40→15:32)
[2021-11-09] MEDS: Meropenem 1 GM PREMIX(*) 1 GM/50 ML BAG IV SCH ×2 (04:36→11:46)
[2021-11-09] MEDS: Levothyroxine 100 MCG/5 ML VIAL IV SCH (04:37)
[2021-11-09 05:22] LABS: ABS Lymphocytes 1.3 10^3/ul (1.0-4.8); ABS Monocytes 0.5 10^3/ul (0-0.8); ABS Neutrophils 7.8 10^3/ul (1.5-7.7); Hematocrit 26 % (35-47); Hemoglobin 8.7 g/dL (12.0-16.0); Lymphocyte % 13.4 %; Mean Corpuscular HGB Conc 34 g/dL (31-36); Mean Corpuscular Hemoglobin 29 pg (27-31); Mean Corpuscular Volume 84 fL (80-97); Mean Platelet Volume 7.8 fL (7.4-10.4); Nucleated Red Blood Cells % 0.2; Platelet Count 22 10^3/uL (150-450); Red Blood Count 3.02 10^6 /uL (3.70-4.87); Red Cell Distribution Width 13 % (10-15); White Blood Count 9.6 10^3/uL (3.5-10.8)
[2021-11-09 05:33] LABS: Albumin 2.5 g/dL (3.2-5.2); Albumin/Globulin Ratio 1.4 (1-3); Calcium 8.2 mg/dL (8.6-10.3); Globulin 1.8 g/dL (2-4); Magnesium 1.7 mg/dL (1.9-2.7); Phosphorus 1.4 mg/dL (2.5-5.0); Potassium 3.5 mmol/L (3.5-5.0); Total Bilirubin 0.9 mg/dL (0.2-1.0); Total Protein 4.3 g/dL (6.4-8.9); eGFR CKD-EPI 121.2 (>60)
[2021-11-09] MEDS ORDERED: Magnesium Sulfate 2 gm BAG 2 GM/50 ML BAG IVPB ONE (08:01)
[2021-11-09] MEDS ORDERED: Potassium Phosphate IV 15 MMOLE in NS 0.9% 250 ml 250 ML IVPB ONE (08:01)
[2021-11-09] MEDS ORDERED: Dexamethasone IV 4 MG/ML 5 ML VIAL (20 MG) ONE ×2 (08:49→14:21)
[2021-11-09] MEDS: Haloperidol 5 mg/ml SDV IV/IM 5 MG/ML AMP IV SLOW PU SCH (08:59)
[2021-11-09] MEDS: Dexamethasone IV 20 MG in NS 0.9% 50 ML 50 ML IVPB SCH (09:02)
[2021-11-09] MEDS: Thiamine 100 MG/ML 2 ml VIAL 500 MG in NS 0.9% 250 ml 250 ML IV SCH (10:18)
[2021-11-09] MEDS: Nystatin TOP POWDER 15 GM BTL TOPICAL SCH ×3 (10:23→19:47)
[2021-11-09] MEDS: CMCS: LINACLOTIDE 72 MCG CAP (NF) PO SCH (10:24)
[2021-11-09] MEDS ORDERED: Dexamethasone IV 20 MG in NS 0.9% 50 ML 50 ML IVPB ONE (12:45)
[2021-11-09 15:53] LABS: ABS Lymphocytes 0.4 10^3/ul (1.0-4.8); ABS Monocytes 0.1 10^3/ul (0-0.8); ABS Neutrophils 5.3 10^3/ul (1.5-7.7); ABS Nucleated RBC 0.1 10^3/ul; Hematocrit 25 % (35-47); Hemoglobin 8.5 g/dL (12.0-16.0); Lymphocyte % 7.3 %; Mean Corpuscular HGB Conc 34 g/dL (31-36); Mean Corpuscular Hemoglobin 28 pg (27-31); Mean Corpuscular Volume 84 fL (80-97); Mean Platelet Volume 7.6 fL (7.4-10.4); Nucleated Red Blood Cells % 1.1; Platelet Count 21 10^3/uL (150-450); Red Blood Count 3.02 10^6 /uL (3.70-4.87); Red Cell Distribution Width 13 % (10-15); White Blood Count 5.9 10^3/uL (3.5-10.8)
[2021-11-10 04:48] LABS: Hematocrit 26 % (35-47); Hemoglobin 8.7 g/dL (12.0-16.0); Mean Corpuscular HGB Conc 34 g/dL (31-36); Mean Corpuscular Hemoglobin 28 pg (27-31); Mean Corpuscular Volume 84 fL (80-97); Mean Platelet Volume 7.4 fL (7.4-10.4); Platelet Count 31 10^3/uL (150-450); Red Blood Count 3.05 10^6 /uL (3.70-4.87); Red Cell Distribution Width 13 % (10-15); White Blood Count 8.6 10^3/uL (3.5-10.8)
[2021-11-10 04:59] LABS: Calcium 8.1 mg/dL (8.6-10.3); Potassium 3.3 mmol/L (3.5-5.0); eGFR CKD-EPI 120.2 (>60)
[2021-11-10 05:28] LABS: ABS Monocytes 0.5 10^3/ul (0-0.8); ABS Neutrophils 7.2 10^3/ul (1.5-7.7); ABS Nucleated RBC 0.2 10^3/ul; Lymphocyte % 11.2 %
[2021-11-10] MEDS: Levothyroxine 100 MCG/5 ML VIAL IV SCH (05:31)
[2021-11-10] MEDS: Nystatin TOP POWDER 15 GM BTL TOPICAL SCH ×3 (08:31→21:00)
[2021-11-10] MEDS: Haloperidol 5 mg/ml SDV IV/IM 5 MG/ML AMP IV SLOW PU SCH (08:31)
[2021-11-10] MEDS: D5LR 20 MEQ KCL 1000 ml BAG 1,000 ML IV SCH ×2 (08:53→20:05)
[2021-11-10] MEDS ORDERED: Dexamethasone IV 40 MG in NS 0.9% 50 ML 50 ML IVPB ONE (09:00)
[2021-11-10] MEDS: Acetaminophen IV 1 GM/100ML 100 ML IV PRN (20:09)
[2021-11-11] MEDS: Acetaminophen IV 1 GM/100ML 100 ML IV PRN (04:13)
[2021-11-11] MEDS: Levothyroxine 100 MCG/5 ML VIAL IV SCH (05:35)
[2021-11-11 06:06] LABS: ABS Monocytes 0.5 10^3/ul (0-0.8); ABS Neutrophils 8.5 10^3/ul (1.5-7.7); Hematocrit 25 % (35-47); Hemoglobin 8.4 g/dL (12.0-16.0); Mean Corpuscular HGB Conc 34 g/dL (31-36); Mean Corpuscular Hemoglobin 29 pg (27-31); Mean Corpuscular Volume 84 fL (80-97); Mean Platelet Volume 8.4 fL (7.4-10.4); Nucleated Red Blood Cells % 0.4; Platelet Count 64 10^3/uL (150-450); Red Blood Count 2.95 10^6 /uL (3.70-4.87); Red Cell Distribution Width 13 % (10-15)
[2021-11-11 06:13] LABS: Calcium 8.4 mg/dL (8.6-10.3); Potassium 3.5 mmol/L (3.5-5.0); eGFR CKD-EPI 113.3 (>60)
[2021-11-11] MEDS: D5LR 20 MEQ KCL 1000 ml BAG 1,000 ML IV SCH ×2 (09:43→19:59)
[2021-11-11] MEDS: Nystatin TOP POWDER 15 GM BTL TOPICAL SCH ×3 (09:53→19:52)
[2021-11-11] MEDS: Haloperidol 5 mg/ml SDV IV/IM 5 MG/ML AMP IV SLOW PU SCH (10:25)
[2021-11-11 13:54] LABS: Ferritin 467.4 ng/mL (11-307)
[2021-11-11] MEDS: Chlorhexidine MOUTHWASH 0.12% 15 ML UDC TOPICAL SCH ×2 (16:05→19:51)
[2021-11-12] MEDS ORDERED: Lactated Ringers 500 ml BAG 500 ML IV ONE (00:15)
[2021-11-12 04:48] LABS: Magnesium 1.7 mg/dL (1.9-2.7)
[2021-11-12 04:50] LABS: ABS Monocytes 0.4 10^3/ul (0-0.8); ABS Neutrophils 5.4 10^3/ul (1.5-7.7); Eosinophil % 0.4 %; Hematocrit 24 % (35-47); Hemoglobin 8.1 g/dL (12.0-16.0); Lymphocyte % 14.2 %; Mean Corpuscular HGB Conc 34 g/dL (31-36); Mean Corpuscular Hemoglobin 29 pg (27-31); Mean Corpuscular Volume 85 fL (80-97); Mean Platelet Volume 7.9 fL (7.4-10.4); Nucleated Red Blood Cells % 0.6; Platelet Count 68 10^3/uL (150-450); Red Blood Count 2.82 10^6 /uL (3.70-4.87); Red Cell Distribution Width 13 % (10-15); White Blood Count 6.8 10^3/uL (3.5-10.8)
[2021-11-12 04:51] LABS: Potassium 5.3 mmol/L (3.5-5.0)
[2021-11-12 04:53] LABS: eGFR CKD-EPI 108.5 (>60)
[2021-11-12] MEDS: Levothyroxine 100 MCG/5 ML VIAL IV SCH (06:12)
[2021-11-12] MEDS ORDERED: Magnesium Sulfate 2 gm BAG 2 GM/50 ML BAG IVPB ONE (07:26)
[2021-11-12] MEDS ORDERED: NS 0.9% 1000 ml BAG 1,000 ML IV SCH (07:30)
[2021-11-12] MEDS: Nystatin TOP POWDER 15 GM BTL TOPICAL SCH ×3 (09:05→20:49)
[2021-11-12] MEDS: Chlorhexidine MOUTHWASH 0.12% 15 ML UDC TOPICAL SCH ×3 (10:18→20:48)
[2021-11-12] MEDS ORDERED: NS 0.9% 250 ml 250 ML IV ONE (11:55)
[2021-11-12] MEDS: NS 0.9% 1000 ml BAG 1,000 ML IV SCH ×2 (12:08→18:01)
[2021-11-13] MEDS: NS 0.9% 1000 ml BAG 1,000 ML IV SCH (05:33)
[2021-11-13 05:35] LABS: Calcium 7.7 mg/dL (8.6-10.3); Potassium 3.7 mmol/L (3.5-5.0); eGFR CKD-EPI 114.6 (>60)
[2021-11-13 05:39] LABS: ABS Eosinophils 0.1 10^3/ul (0-0.6); ABS Lymphocytes 0.6 10^3/ul (1.0-4.8); ABS Monocytes 0.3 10^3/ul (0-0.8); ABS Neutrophils 4.9 10^3/ul (1.5-7.7); Eosinophil % 1.1 %; Hematocrit 27 % (35-47); Hemoglobin 9.1 g/dL (12.0-16.0); Lymphocyte % 10.4 %; Mean Corpuscular HGB Conc 34 g/dL (31-36); Mean Corpuscular Hemoglobin 29 pg (27-31); Mean Corpuscular Volume 85 fL (80-97); Mean Platelet Volume 7.7 fL (7.4-10.4); Nucleated Red Blood Cells % 0.4; Platelet Count 72 10^3/uL (150-450); Red Blood Count 3.18 10^6 /uL (3.70-4.87); Red Cell Distribution Width 14 % (10-15); White Blood Count 5.8 10^3/uL (3.5-10.8)
[2021-11-13] MEDS: Levothyroxine 100 MCG/5 ML VIAL IV SCH (05:40)
[2021-11-13] MEDS ORDERED: Magnesium Sulfate IV 3 GM in NS 0.9% 100 ml BAG 100 ML IVPB ONE (07:43)
[2021-11-13] MEDS ORDERED: Magnesium Sulfate 2 GM IV (Premix) IVPB ONE (08:00)
[2021-11-13] MEDS ORDERED: Magnesium Sulfate 1 GM IV 1 GM/100 ML BAG IV ONE (08:00)
[2021-11-13] MEDS: D5LR 20 MEQ KCL 1000 ml BAG 1,000 ML IV SCH ×2 (08:46→17:29)
[2021-11-13] MEDS: Chlorhexidine MOUTHWASH 0.12% 15 ML UDC TOPICAL SCH ×3 (08:48→20:55)
[2021-11-13] MEDS ORDERED: D5LR 20 MEQ KCL 1000 ml BAG 1,000 ML IV ONE (08:58)
[2021-11-13] MEDS ORDERED: [UNRECOGNIZED DRUG - OTHER] IV ONE (08:58)
[2021-11-13] MEDS ORDERED: KCL IV ONE (08:58)
[2021-11-13] MEDS: Nystatin TOP POWDER 15 GM BTL TOPICAL SCH ×3 (09:39→20:58)
[2021-11-13] MEDS: Enoxaparin 30 MG/0.3 ML SYR SUBCUT SCH (16:14)
[2021-11-14] MEDS: Levothyroxine 100 MCG/5 ML VIAL IV SCH (05:06)
[2021-11-14 05:51] LABS: ABS Eosinophils 0.1 10^3/ul (0-0.6); ABS Lymphocytes 0.4 10^3/ul (1.0-4.8); ABS Monocytes 0.3 10^3/ul (0-0.8); ABS Neutrophils 3.4 10^3/ul (1.5-7.7); Eosinophil % 1.8 %; Hematocrit 26 % (35-47); Hemoglobin 8.8 g/dL (12.0-16.0); Lymphocyte % 10.1 %; Mean Corpuscular HGB Conc 34 g/dL (31-36); Mean Corpuscular Hemoglobin 29 pg (27-31); Mean Corpuscular Volume 85 fL (80-97); Nucleated Red Blood Cells % 0.2; Platelet Count 78 10^3/uL (150-450); Red Blood Count 3.07 10^6 /uL (3.70-4.87); Red Cell Distribution Width 14 % (10-15); White Blood Count 4.1 10^3/uL (3.5-10.8)
[2021-11-14 06:01] LABS: Anion Gap 4 mmol/L (2-11); CO2 Carbon Dioxide 25 mmol/L (22-32); Calcium 7.8 mg/dL (8.6-10.3); Chloride 105 mmol/L (101-111); Magnesium 2.3 mg/dL (1.9-2.7); Potassium 3.9 mmol/L (3.5-5.0); Sodium 134 mmol/L (135-145)
[2021-11-14 06:07] LABS: Blood Urea Nitrogen 5 mg/dL (6-24); Glucose 91 mg/dL (70-100); eGFR CKD-EPI 112.6 (>60)
[2021-11-14] MEDS: D5LR 20 MEQ KCL 1000 ml BAG 1,000 ML IV SCH ×4 (07:21→23:47)
[2021-11-14] MEDS: Chlorhexidine MOUTHWASH 0.12% 15 ML UDC TOPICAL SCH ×3 (10:08→20:53)
[2021-11-14] MEDS ORDERED: KCL IV ONE ×2 (11:59→16:03)
[2021-11-14] MEDS ORDERED: [UNRECOGNIZED DRUG - OTHER] IV ONE (11:59)
[2021-11-14 14:04] LABS: Troponin I 0.03 ng/mL (<0.03)
[2021-11-14] MEDS ORDERED: Perflutren Lipid Microsphere 3 ML VIAL ONE (15:08)
[2021-11-14] MEDS: Enoxaparin 30 MG/0.3 ML SYR SUBCUT SCH (15:14)
[2021-11-14 15:45] LABS: Troponin I 0.03 ng/mL (<0.03)
[2021-11-14] MEDS ORDERED: [UNRECOGNIZED DRUG - OTHER] IV ONE (16:03)
[2021-11-14] MEDS ORDERED: Lactated Ringers 500 ml BAG 500 ML IV ONE (20:08)
[2021-11-14] MEDS: OLANzapine 5 mg TAB*ODT PO SCH (20:53)
[2021-11-15] MEDS: Levothyroxine 100 MCG/5 ML VIAL IV SCH (05:05)
[2021-11-15 05:32] LABS: ABS Eosinophils 0.1 10^3/ul (0-0.6); ABS Lymphocytes 0.6 10^3/ul (1.0-4.8); ABS Monocytes 0.3 10^3/ul (0-0.8); ABS Neutrophils 3.7 10^3/ul (1.5-7.7); Eosinophil % 1.7 %; Hematocrit 27 % (35-47); Lymphocyte % 13.1 %; Mean Corpuscular HGB Conc 34 g/dL (31-36); Mean Corpuscular Hemoglobin 29 pg (27-31); Mean Corpuscular Volume 86 fL (80-97); Mean Platelet Volume 7.9 fL (7.4-10.4); Nucleated Red Blood Cells % 0.1; Platelet Count 94 10^3/uL (150-450); Red Blood Count 3.12 10^6 /uL (3.70-4.87); Red Cell Distribution Width 14 % (10-15); White Blood Count 4.7 10^3/uL (3.5-10.8)
[2021-11-15 05:38] LABS: Calcium 8.2 mg/dL (8.6-10.3); Magnesium 1.9 mg/dL (1.9-2.7); Potassium 3.9 mmol/L (3.5-5.0)
[2021-11-15 05:44] LABS: eGFR CKD-EPI 111.4 (>60)
[2021-11-15] MEDS: D5LR 20 MEQ KCL 1000 ml BAG 1,000 ML IV SCH ×2 (10:44→21:38)
[2021-11-15] MEDS: Chlorhexidine MOUTHWASH 0.12% 15 ML UDC TOPICAL SCH ×3 (11:01→21:37)
[2021-11-15] MEDS: Enoxaparin 30 MG/0.3 ML SYR SUBCUT SCH (14:17)
[2021-11-15] MEDS ORDERED: Lactated Ringers 1000 ml BAG 1,000 ML IV ONE (15:55)
[2021-11-15] MEDS: OLANzapine 5 mg TAB*ODT PO SCH (21:38)
[2021-11-15] MEDS ORDERED: Lactated Ringers 500 ml BAG 500 ML IV ONE (23:04)
[2021-11-16] MEDS: Levothyroxine 100 MCG/5 ML VIAL IV SCH (05:17)
[2021-11-16 06:05] LABS: ABS Eosinophils 0.1 10^3/ul (0-0.6); ABS Lymphocytes 1.1 10^3/ul (1.0-4.8); ABS Monocytes 0.4 10^3/ul (0-0.8); ABS Neutrophils 3.5 10^3/ul (1.5-7.7); Eosinophil % 1.9 %; Hematocrit 24 % (35-47); Hemoglobin 8.2 g/dL (12.0-16.0); Lymphocyte % 21.6 %; Mean Corpuscular HGB Conc 34 g/dL (31-36); Mean Corpuscular Hemoglobin 29 pg (27-31); Mean Corpuscular Volume 86 fL (80-97); Mean Platelet Volume 7.3 fL (7.4-10.4); Nucleated Red Blood Cells % 0.1; Platelet Count 102 10^3/uL (150-450); Red Blood Count 2.85 10^6 /uL (3.70-4.87); Red Cell Distribution Width 14 % (10-15); White Blood Count 5.2 10^3/uL (3.5-10.8)
[2021-11-16 06:44] LABS: Potassium 3.8 mmol/L (3.5-5.0)
[2021-11-16 06:49] LABS: eGFR CKD-EPI 110.2 (>60)
[2021-11-16] MEDS: D5LR 20 MEQ KCL 1000 ml BAG 1,000 ML IV SCH ×2 (10:38→20:44)
[2021-11-16] MEDS: Chlorhexidine MOUTHWASH 0.12% 15 ML UDC TOPICAL SCH ×3 (10:48→20:42)
[2021-11-16] MEDS: Enoxaparin 30 MG/0.3 ML SYR SUBCUT SCH (14:48)
[2021-11-16] MEDS: OLANzapine 5 mg TAB*ODT PO SCH (20:42)
[2021-11-16 22:30] LABS: Urine Appearance Cloudy; Urine Bilirubin Negative (Negative); Urine Blood 2+ (Negative); Urine Color Straw; Urine Glucose Negative (Negative); Urine Ketones Negative (Negative); Urine Nitrite Negative (Negative); Urine Protein Negative (Negative); Urine Urobilinogen Negative (Negative)
[2021-11-16 22:48] LABS: Urine Bacteria 3+ (Absent); Urine Red Blood Cell Trace(0-2/hpf) (Absent); Urine White Blood Cell Trace(0-5/hpf) (Absent)
[2021-11-17 04:59] LABS: ABS Eosinophils 0.1 10^3/ul (0-0.6); ABS Lymphocytes 1.1 10^3/ul (1.0-4.8); ABS Monocytes 0.4 10^3/ul (0-0.8); ABS Neutrophils 4.3 10^3/ul (1.5-7.7); Eosinophil % 1.3 %; Hematocrit 24 % (35-47); Hemoglobin 7.8 g/dL (12.0-16.0); Lymphocyte % 18.9 %; Mean Corpuscular HGB Conc 33 g/dL (31-36); Mean Corpuscular Hemoglobin 28 pg (27-31); Mean Corpuscular Volume 85 fL (80-97); Mean Platelet Volume 7.3 fL (7.4-10.4); Platelet Count 114 10^3/uL (150-450); Red Blood Count 2.76 10^6 /uL (3.70-4.87); Red Cell Distribution Width 14 % (10-15); White Blood Count 5.9 10^3/uL (3.5-10.8)
[2021-11-17] MEDS: Levothyroxine 100 MCG/5 ML VIAL IV SCH (05:13)
[2021-11-17 05:30] LABS: Potassium 3.5 mmol/L (3.5-5.0)
[2021-11-17] MEDS: D5LR 20 MEQ KCL 1000 ml BAG 1,000 ML IV SCH (07:37)
[2021-11-17 08:10] LABS: Magnesium 1.6 mg/dL (1.9-2.7); Phosphorus 2.5 mg/dL (2.5-5.0)
[2021-11-17] MEDS: Chlorhexidine MOUTHWASH 0.12% 15 ML UDC TOPICAL SCH ×3 (08:42→22:14)
[2021-11-17] MEDS: Enoxaparin 30 MG/0.3 ML SYR SUBCUT SCH (13:42)
[2021-11-17] MEDS ORDERED: Magnesium Sulfate 2 gm BAG 2 GM/50 ML BAG IVPB ONE (15:26)
[2021-11-17] MEDS: OLANzapine 5 mg TAB*ODT PO SCH (22:14)
[2021-11-18] MEDS: D5LR 20 MEQ KCL 1000 ml BAG 1,000 ML IV SCH ×2 (04:39→15:13)
[2021-11-18] MEDS: Levothyroxine 100 MCG/5 ML VIAL IV SCH (06:18)
[2021-11-18 06:38] LABS: ABS Lymphocytes 0.7 10^3/ul (1.0-4.8); ABS Monocytes 0.4 10^3/ul (0-0.8); ABS Neutrophils 5.8 10^3/ul (1.5-7.7); Eosinophil % 0.6 %; Hematocrit 25 % (35-47); Hemoglobin 8.4 g/dL (12.0-16.0); Lymphocyte % 9.6 %; Mean Corpuscular HGB Conc 33 g/dL (31-36); Mean Corpuscular Hemoglobin 29 pg (27-31); Mean Corpuscular Volume 86 fL (80-97); Mean Platelet Volume 7.2 fL (7.4-10.4); Platelet Count 120 10^3/uL (150-450); Red Blood Count 2.92 10^6 /uL (3.70-4.87); Red Cell Distribution Width 14 % (10-15)
[2021-11-18 06:58] LABS: Calcium 8.1 mg/dL (8.6-10.3); Potassium 3.8 mmol/L (3.5-5.0)
[2021-11-18] MEDS: Chlorhexidine MOUTHWASH 0.12% 15 ML UDC TOPICAL SCH ×3 (08:41→20:13)
[2021-11-18] MEDS: Enoxaparin 30 MG/0.3 ML SYR SUBCUT SCH (14:21)
[2021-11-18] MEDS: OLANzapine 5 mg TAB*ODT PO SCH (20:12)
[2021-11-19] MEDS: D5LR 20 MEQ KCL 1000 ml BAG 1,000 ML IV SCH ×2 (01:21→19:19)
[2021-11-19] MEDS: Levothyroxine 100 MCG/5 ML VIAL IV SCH (05:23)
[2021-11-19 05:49] LABS: ABS Lymphocytes 0.9 10^3/ul (1.0-4.8); ABS Monocytes 0.4 10^3/ul (0-0.8); ABS Neutrophils 4.8 10^3/ul (1.5-7.7); Eosinophil % 0.5 %; Hematocrit 23 % (35-47); Hemoglobin 7.7 g/dL (12.0-16.0); Mean Corpuscular HGB Conc 34 g/dL (31-36); Mean Corpuscular Hemoglobin 29 pg (27-31); Mean Corpuscular Volume 86 fL (80-97); Mean Platelet Volume 7.3 fL (7.4-10.4); Platelet Count 124 10^3/uL (150-450); Red Blood Count 2.69 10^6 /uL (3.70-4.87); Red Cell Distribution Width 15 % (10-15); White Blood Count 6.2 10^3/uL (3.5-10.8)
[2021-11-19 06:27] LABS: Potassium 3.8 mmol/L (3.5-5.0)
[2021-11-19] MEDS: Chlorhexidine MOUTHWASH 0.12% 15 ML UDC TOPICAL SCH ×3 (09:24→21:52)
[2021-11-19] MEDS ORDERED: ceFAZolin 1 GM ADVAN 1 GM in NS 0.9% 50 ML 50 ML IVPB ONE (10:00)
[2021-11-19 11:03] LABS: High Sensitivity Troponin 1 Hr 5 pg/mL (<15)
[2021-11-19 12:02] LABS: INR 1.21 (0.86-1.15)
[2021-11-19] MEDS ORDERED: fentaNYL 100 mcg/2 ml 50 MCG/ML VIAL ONE (13:21)
[2021-11-19] MEDS ORDERED: Ondansetron 4 mg VIAL 2 MG/ML 2 ml VIAL ONE (13:22)
[2021-11-19] MEDS ORDERED: Propofol 10 MG/ML 20 ML BTL ONE (13:22)
[2021-11-19] MEDS ORDERED: Succinylcholine 200 mg VIAL 20 mg/ml 10 ml VIAL (200 mg) ONE (13:57)
[2021-11-19] MEDS ORDERED: ceFAZolin 1 GM ADVAN 1 GM ADDV.VIAL IVPB ONE (14:21)
[2021-11-19] MEDS ORDERED: Lidocaine 2% PF 5 ML VIAL ONE (14:42)
[2021-11-19] MEDS ORDERED: Naloxone 0.4 mg VIAL 0.4 mg/ml 1 ml VIAL IV PRN (15:13)
[2021-11-19] MEDS ORDERED: Acetaminophen IV 1 GM/100ML 100 ML IV ONE (15:13)
[2021-11-19 16:22] LABS: Ferritin 326.7 ng/mL (11-307)
[2021-11-19 17:06] LABS: Anti-Glial/Neuronal Nuc Ab-1 A Negative titer (<1:240); Anti-Neuronal Nuclear Ab Type1 Negative titer (<1:240); Anti-Neuronal Nuclear Ab Type2 Negative titer (<1:240); Anti-Neuronal Nuclear Ab Type3 Negative titer (<1:240); CRMP-5 IgG Antibody Negative titer (<1:240); Purkinje Cell Cytoplasm Typ Tr Negative titer (<1:240); Purkinje Cell Cytoplasm Type 1 Negative titer (<1:240); Purkinje Cell Cytoplasm Type 2 Negative titer (<1:240)
[2021-11-19] MEDS: OLANzapine 5 mg TAB*ODT PO SCH (21:52)
[2021-11-20] MEDS: D5LR 20 MEQ KCL 1000 ml BAG 1,000 ML IV SCH (05:53)
[2021-11-20] MEDS: Levothyroxine 100 MCG/5 ML VIAL IV SCH (05:58)
[2021-11-20 06:21] LABS: ABS Lymphocytes 1.1 10^3/ul (1.0-4.8); ABS Monocytes 0.4 10^3/ul (0-0.8); ABS Neutrophils 4.1 10^3/ul (1.5-7.7); Eosinophil % 0.4 %; Hematocrit 22 % (35-47); Hemoglobin 7.2 g/dL (12.0-16.0); Lymphocyte % 19.4 %; Mean Corpuscular HGB Conc 33 g/dL (31-36); Mean Corpuscular Hemoglobin 29 pg (27-31); Mean Corpuscular Volume 87 fL (80-97); Mean Platelet Volume 7.1 fL (7.4-10.4); Nucleated Red Blood Cells % 0.1; Platelet Count 124 10^3/uL (150-450); Red Blood Count 2.53 10^6 /uL (3.70-4.87); Red Cell Distribution Width 15 % (10-15); White Blood Count 5.6 10^3/uL (3.5-10.8)
[2021-11-20 06:46] LABS: Calcium 7.9 mg/dL (8.6-10.3); Potassium 3.8 mmol/L (3.5-5.0); eGFR CKD-EPI 105.1 (>60)
[2021-11-20] MEDS ORDERED: D5LR 20 MEQ KCL 1000 ml BAG 1,000 ML IV SCH (08:52)
[2021-11-20] MEDS: Chlorhexidine MOUTHWASH 0.12% 15 ML UDC TOPICAL SCH ×3 (09:57→21:10)
[2021-11-20] MEDS ORDERED: Alteplase (CATHFLO) 2 MG VIAL IV ONE (11:07)
[2021-11-20] MEDS: Acetaminophen IV 1 GM/100ML 100 ML IV PRN (11:50)
[2021-11-20] MEDS ORDERED: Enoxaparin 30 MG/0.3 ML SYR SUBCUT SCH (18:00)
[2021-11-20] MEDS ORDERED: NS 0.9% 1000 ml BAG 1,000 ML IV ONE (23:39)
[2021-11-21 00:19] LABS: Hematocrit 20 % (35-47); Hemoglobin 6.7 g/dL (12.0-16.0); Mean Corpuscular HGB Conc 33 g/dL (31-36); Mean Corpuscular Hemoglobin 29 pg (27-31); Mean Corpuscular Volume 86 fL (80-97); Red Blood Count 2.36 10^6 /uL (3.70-4.87); Red Cell Distribution Width 14 % (10-15)
[2021-11-21] MEDS ORDERED: NS 0.9% 1000 ml BAG 1,000 ML IV ONE ×2 (01:33→14:39)
[2021-11-21 01:50] LABS: Mean Platelet Volume 6.7 fL (7.4-10.4); Platelet Count 86 10^3/uL (150-450)
[2021-11-21] MEDS ORDERED: NS 0.9% 1000 ml BAG 1,000 ML IV SCH ×2 (02:00→03:50)
[2021-11-21] MEDS ORDERED: Zosyn per Pharmacy NOTE FOLLOW UP SCH ×2 (02:00→10:00)
[2021-11-21] MEDS ORDERED: Piperacillin/Tazobac ADVAN 3.375 GM in NS 0.9% 100 ml BAG 100 ML IV ONE (02:30)
[2021-11-21 03:53] LABS: Urine Appearance Turbid; Urine Bilirubin Negative (Negative); Urine Blood 2+ (Negative); Urine Color Yellow; Urine Glucose Negative (Negative); Urine Ketones Negative (Negative); Urine Nitrite Negative (Negative); Urine Protein Negative (Negative); Urine Specific Gravity 1.012 (1.002-1.030); Urine Urobilinogen Negative (Negative)
[2021-11-21 04:13] LABS: Urine Bacteria 2+ (Absent); Urine Red Blood Cell 3+(>10/hpf) (Absent); Urine Squamous Epithelial Cell Present (Absent); Urine White Blood Cell 3+(>20/hpf) (Absent)
[2021-11-21 04:24] LABS: ALT 25 U/L (7-52); AST 8 U/L (13-39); Alkaline Phosphatase 372 U/L (35-149); Blood Urea Nitrogen 6 mg/dL (6-24); C Reactive Protein 24.84 mg/L (<8.01); CO2 Carbon Dioxide 21 mmol/L (22-32); Glucose 82 mg/dL (70-100); Sodium 140 mmol/L (135-145); eGFR CKD-EPI 113.3 (>60)
[2021-11-21 04:28] LABS: Anion Gap 4 mmol/L (2-11); Chloride 115 mmol/L (101-111)
[2021-11-21] MEDS ORDERED: Norepinephrine 16MCG/ML BAGD5W 4,000 MCG/250 ML BAG IV ONE (04:28)
[2021-11-21] MEDS: Norepinephrine 16MCG/ML BAGD5W 4,000 MCG/250 ML BAG IV SCH ×2 (04:30→19:28)
[2021-11-21 04:31] LABS: Albumin < 1.7 g/dL (3.2-5.2); Albumin/Globulin Ratio 1.3 (1-3); Calcium 5.9 mg/dL (8.6-10.3); Globulin 1.3 g/dL (2-4); Total Protein < 3.0 g/dL (6.4-8.9)
[2021-11-21] MEDS ORDERED: Calcium Gluconate 2 GM in NS 0.9% 100 ml BAG 100 ML IV ONE (04:32)
[2021-11-21] MEDS ORDERED: CALCIUM GLUCONATE 1GM/50ML NS 1 GM/50 ML BAG IV ONE (04:36)
[2021-11-21] MEDS ORDERED: Meropenem 1 GM PREMIX(*) 1 GM/50 ML BAG IV SCH (05:00)
[2021-11-21 05:39] LABS: Hematocrit 23 % (35-47); Hemoglobin 7.6 g/dL (12.0-16.0); Mean Corpuscular HGB Conc 33 g/dL (31-36); Mean Corpuscular Hemoglobin 29 pg (27-31); Mean Corpuscular Volume 88 fL (80-97); Mean Platelet Volume 6.8 fL (7.4-10.4); Platelet Count 87 10^3/uL (150-450); Red Blood Count 2.61 10^6 /uL (3.70-4.87); Red Cell Distribution Width 15 % (10-15); White Blood Count 3.8 10^3/uL (3.5-10.8)
[2021-11-21 06:02] LABS: Albumin 2.1 g/dL (3.2-5.2); Albumin/Globulin Ratio 1.2 (1-3); Calcium 7.1 mg/dL (8.6-10.3); Globulin 1.8 g/dL (2-4); Magnesium 1.6 mg/dL (1.9-2.7); Phosphorus 3.4 mg/dL (2.5-5.0); Potassium 3.5 mmol/L (3.5-5.0); Total Bilirubin 1.2 mg/dL (0.2-1.0); Total Protein 3.9 g/dL (6.4-8.9); eGFR CKD-EPI 107.5 (>60)
[2021-11-21] MEDS: Levothyroxine 100 MCG/5 ML VIAL IV SCH (06:06)
[2021-11-21] MEDS ORDERED: ZOSYN 3.375 GM Q8H per EXTENDED INFUSION IV SCH (07:30)
[2021-11-21] MEDS: KCL 20 MEQ/100 ML IVPREMIX 20 MEQ/100 ML BAG IV SCH ×3 (07:56→12:16)
[2021-11-21] MEDS ORDERED: KCL 20 MEQ/100 ML IVPREMIX 20 MEQ/100 ML BAG IV SCH (08:00)
[2021-11-21 08:37] LABS: ABS Lymphocytes 0.7 10^3/ul (1.0-4.8); ABS Monocytes 0.2 10^3/ul (0-0.8); Eosinophil % 0.4 %; Lymphocyte % 17.6 %; Nucleated Red Blood Cells % 0.3
[2021-11-21] MEDS ORDERED: Magnesium Sulf 4 GM/100 ML IV 4,000 MG/100 ML BAG IVPB ONE (09:00)
[2021-11-21] MEDS: Chlorhexidine MOUTHWASH 0.12% 15 ML UDC TOPICAL SCH ×3 (10:02→20:51)
[2021-11-21] MEDS: Acetaminophen IV 1 GM/100ML 100 ML IV PRN ×2 (10:04→20:51)
[2021-11-21] MEDS ORDERED: ZOSYN 3.375 GM x ONE DOSE over 30 miuntes IV (11:00)
[2021-11-21 15:06] LABS: Hematocrit 26 % (35-47); Hemoglobin 8.8 g/dL (12.0-16.0)
[2021-11-21] MEDS ORDERED: Iohexol 300 (CONTRAST) 10 ML SDV IV ONE (15:18)
[2021-11-21] MEDS: ZOSYN 3.375 GM Q8H per EXTENDED INFUSION IV SCH ×2 (16:31→22:13)
[2021-11-21] MEDS ORDERED: Iohexol 350 (CONTRAST) 500 ML MDV IV ONE (17:06)
[2021-11-21 20:54] LABS: Hematocrit 29 % (35-47); Hemoglobin 9.8 g/dL (12.0-16.0)
[2021-11-22] MEDS: Levothyroxine 100 MCG/5 ML VIAL IV SCH (04:12)
[2021-11-22 04:28] LABS: ABS Lymphocytes 0.4 10^3/ul (1.0-4.8); ABS Monocytes 0.2 10^3/ul (0-0.8); ABS Neutrophils 5.1 10^3/ul (1.5-7.7); Eosinophil % 0.4 %; Hematocrit 28 % (35-47); Hemoglobin 9.3 g/dL (12.0-16.0); Lymphocyte % 7.3 %; Mean Corpuscular HGB Conc 33 g/dL (31-36); Mean Corpuscular Hemoglobin 29 pg (27-31); Mean Corpuscular Volume 87 fL (80-97); Mean Platelet Volume 6.5 fL (7.4-10.4); Nucleated Red Blood Cells % 0.1; Platelet Count 85 10^3/uL (150-450); Red Blood Count 3.22 10^6 /uL (3.70-4.87); Red Cell Distribution Width 15 % (10-15); White Blood Count 5.7 10^3/uL (3.5-10.8)
[2021-11-22 05:26] LABS: Albumin 2.1 g/dL (3.2-5.2); Albumin/Globulin Ratio 1.2 (1-3); Calcium 7.6 mg/dL (8.6-10.3); Globulin 1.8 g/dL (2-4); Magnesium 2.2 mg/dL (1.9-2.7); Phosphorus 2.9 mg/dL (2.5-5.0); Potassium 3.5 mmol/L (3.5-5.0); Total Bilirubin 6.6 mg/dL (0.2-1.0); Total Protein 3.9 g/dL (6.4-8.9); eGFR CKD-EPI 108.5 (>60)
[2021-11-22] MEDS: Chlorhexidine MOUTHWASH 0.12% 15 ML UDC TOPICAL SCH ×4 (09:29→19:50)
[2021-11-22] MEDS: ZOSYN 3.375 GM Q8H per EXTENDED INFUSION IV SCH ×3 (09:29→22:57)
[2021-11-22] MEDS: Pantoprazole VIAL 40 MG VIAL IV SCH (09:29)
[2021-11-22] MEDS: Norepinephrine 16MCG/ML BAGD5W 4,000 MCG/250 ML BAG IV SCH (10:35)
[2021-11-22] MEDS ORDERED: Albumin Human 5% 12.5 GM/250 ML BTL IV ONE (11:16)
[2021-11-23] MEDS: Norepinephrine 16MCG/ML BAGD5W 4,000 MCG/250 ML BAG IV SCH (01:56)
[2021-11-23] MEDS: Levothyroxine 100 MCG/5 ML VIAL IV SCH (04:10)
[2021-11-23 04:28] LABS: ABS Lymphocytes 0.5 10^3/ul (1.0-4.8); ABS Monocytes 0.2 10^3/ul (0-0.8); ABS Neutrophils 3.9 10^3/ul (1.5-7.7); Eosinophil % 0.7 %; Hematocrit 27 % (35-47); Hemoglobin 8.8 g/dL (12.0-16.0); Lymphocyte % 11.5 %; Mean Corpuscular HGB Conc 33 g/dL (31-36); Mean Corpuscular Hemoglobin 29 pg (27-31); Mean Corpuscular Volume 86 fL (80-97); Mean Platelet Volume 6.6 fL (7.4-10.4); Nucleated Red Blood Cells % 0.1; Platelet Count 71 10^3/uL (150-450); Red Blood Count 3.09 10^6 /uL (3.70-4.87); Red Cell Distribution Width 15 % (10-15); White Blood Count 4.6 10^3/uL (3.5-10.8)
[2021-11-23 05:08] LABS: Albumin 2.2 g/dL (3.2-5.2); Albumin/Globulin Ratio 1.2 (1-3); Calcium 7.7 mg/dL (8.6-10.3); Globulin 1.8 g/dL (2-4); Phosphorus 3.3 mg/dL (2.5-5.0); Potassium 3.1 mmol/L (3.5-5.0); Total Bilirubin 3.2 mg/dL (0.2-1.0)
[2021-11-23] MEDS: KCL 20 MEQ/100 ML IVPREMIX 20 MEQ/100 ML BAG IV SCH ×3 (06:43→11:51)
[2021-11-23] MEDS: ZOSYN 3.375 GM Q8H per EXTENDED INFUSION IV SCH ×3 (07:52→23:56)
[2021-11-23] MEDS: Chlorhexidine MOUTHWASH 0.12% 15 ML UDC TOPICAL SCH ×3 (09:17→21:35)
[2021-11-23] MEDS: Pantoprazole VIAL 40 MG VIAL IV SCH (09:17)
[2021-11-23 18:52] LABS: Urine Appearance Clear; Urine Bilirubin Negative (Negative); Urine Blood Negative (Negative); Urine Color Yellow; Urine Glucose Negative (Negative); Urine Ketones Negative (Negative); Urine Nitrite Negative (Negative); Urine Protein Negative (Negative); Urine Specific Gravity 1.009 (1.002-1.030); Urine Urobilinogen Negative (Negative)
[2021-11-23] MEDS ORDERED: Sodium Phosphate ADULT ENEMA 133 ML BTL PR ONE (18:58)
[2021-11-23 19:02] LABS: Urine Bacteria 1+ (Absent); Urine Red Blood Cell 1+(3-5/hpf) (Absent); Urine White Blood Cell 1+(6-10/hpf) (Absent)
[2021-11-24] MEDS: Levothyroxine 100 MCG/5 ML VIAL IV SCH (05:53)
[2021-11-24 10:08] LABS: Hematocrit 28 % (35-47); Hemoglobin 9.4 g/dL (12.0-16.0); Mean Corpuscular HGB Conc 33 g/dL (31-36); Mean Corpuscular Hemoglobin 29 pg (27-31); Mean Corpuscular Volume 87 fL (80-97); Mean Platelet Volume 6.8 fL (7.4-10.4); Platelet Count 77 10^3/uL (150-450); Red Blood Count 3.26 10^6 /uL (3.70-4.87); Red Cell Distribution Width 16 % (10-15); White Blood Count 5.1 10^3/uL (3.5-10.8)
[2021-11-24] MEDS: ZOSYN 3.375 GM Q8H per EXTENDED INFUSION IV SCH ×2 (10:26→16:18)
[2021-11-24 10:49] LABS: Albumin 2.4 g/dL (3.2-5.2); Albumin/Globulin Ratio 1.2 (1-3); Calcium 7.7 mg/dL (8.6-10.3); Magnesium 1.8 mg/dL (1.9-2.7); Potassium 3.2 mmol/L (3.5-5.0); Total Bilirubin 1.5 mg/dL (0.2-1.0); Total Protein 4.4 g/dL (6.4-8.9); eGFR CKD-EPI 113.9 (>60)
[2021-11-24] MEDS: Pantoprazole VIAL 40 MG VIAL IV SCH (10:51)
[2021-11-24] MEDS: Chlorhexidine MOUTHWASH 0.12% 15 ML UDC TOPICAL SCH ×4 (10:51→20:41)
[2021-11-24 11:05] LABS: ABS Lymphocytes 0.8 10^3/ul (1.0-4.8); ABS Monocytes 0.3 10^3/ul (0-0.8); Eosinophil % 0.9 %; Lymphocyte % 15.3 %; Nucleated Red Blood Cells % 0.1
[2021-11-24] MEDS ORDERED: Magnesium Sulfate 2 gm BAG 2 GM/50 ML BAG IVPB ONE (12:11)
[2021-11-24] MEDS: KCL 20 MEQ/100 ML IVPREMIX 20 MEQ/100 ML BAG IV SCH ×2 (15:04→17:05)
[2021-11-24] MEDS: Acetaminophen IV 1 GM/100ML 100 ML IV PRN (19:12)
[2021-11-24] MEDS ORDERED: NORMOSOL-R pH 7.4 1000 mL BAG 500 ML IV SCH (20:00)
[2021-11-24] MEDS: Norepinephrine 16MCG/ML BAGD5W 4,000 MCG/250 ML BAG IV SCH (22:24)
[2021-11-25] MEDS: ZOSYN 3.375 GM Q8H per EXTENDED INFUSION IV SCH ×3 (00:57→16:06)
[2021-11-25] MEDS: Norepinephrine 16MCG/ML BAGD5W 4,000 MCG/250 ML BAG IV SCH (05:27)
[2021-11-25 05:39] LABS: Hematocrit 27 % (35-47); Mean Corpuscular HGB Conc 33 g/dL (31-36); Mean Corpuscular Hemoglobin 29 pg (27-31); Mean Corpuscular Volume 87 fL (80-97); Mean Platelet Volume 6.9 fL (7.4-10.4); Platelet Count 73 10^3/uL (150-450); Red Blood Count 3.14 10^6 /uL (3.70-4.87); Red Cell Distribution Width 16 % (10-15)
[2021-11-25 05:57] LABS: Calcium 7.3 mg/dL (8.6-10.3); Potassium 3.6 mmol/L (3.5-5.0); eGFR CKD-EPI 113.9 (>60)
[2021-11-25 06:13] LABS: ABS Eosinophils 0.1 10^3/ul (0-0.6); ABS Lymphocytes 0.9 10^3/ul (1.0-4.8); ABS Monocytes 0.2 10^3/ul (0-0.8); ABS Neutrophils 2.8 10^3/ul (1.5-7.7); Eosinophil % 1.3 %; Nucleated Red Blood Cells % 0.1
[2021-11-25] MEDS: Pantoprazole VIAL 40 MG VIAL IV SCH (09:17)
[2021-11-25] MEDS: Chlorhexidine MOUTHWASH 0.12% 15 ML UDC TOPICAL SCH ×3 (09:17→20:02)
[2021-11-25 10:48] LABS: Albumin 2.1 g/dL (3.2-5.2); Albumin/Globulin Ratio 1.1 (1-3); Total Bilirubin 1.1 mg/dL (0.2-1.0); Total Protein 4.1 g/dL (6.4-8.9)
[2021-11-25] MEDS ORDERED: Norepinephrine 16MCG/ML BAG NS 4,000 MCG/250 ML BAG IV SCH (23:00)
[2021-11-25] MEDS ORDERED: Norepinephrine 16MCG/ML BAGD5W 4,000 MCG/250 ML BAG IV SCH (23:00)
[2021-11-26] MEDS: ZOSYN 3.375 GM Q8H per EXTENDED INFUSION IV SCH ×3 (00:39→17:25)
[2021-11-26 04:44] LABS: INR 1.08 (0.86-1.15)
[2021-11-26 04:49] LABS: ABS Eosinophils 0.1 10^3/ul (0-0.6); ABS Lymphocytes 0.9 10^3/ul (1.0-4.8); ABS Monocytes 0.3 10^3/ul (0-0.8); ABS Neutrophils 2.9 10^3/ul (1.5-7.7); Hematocrit 27 % (35-47); Hemoglobin 8.7 g/dL (12.0-16.0); Lymphocyte % 21.1 %; Mean Corpuscular HGB Conc 33 g/dL (31-36); Mean Corpuscular Hemoglobin 28 pg (27-31); Mean Corpuscular Volume 87 fL (80-97); Mean Platelet Volume 6.9 fL (7.4-10.4); Nucleated Red Blood Cells % 0.1; Platelet Count 80 10^3/uL (150-450); Red Blood Count 3.06 10^6 /uL (3.70-4.87); Red Cell Distribution Width 15 % (10-15); White Blood Count 4.1 10^3/uL (3.5-10.8)
[2021-11-26 05:01] LABS: Albumin 2.2 g/dL (3.2-5.2); Albumin/Globulin Ratio 1.1 (1-3); Calcium 7.6 mg/dL (8.6-10.3); Magnesium 1.9 mg/dL (1.9-2.7); Potassium 4.2 mmol/L (3.5-5.0); Total Protein 4.2 g/dL (6.4-8.9); eGFR CKD-EPI 109.6 (>60)
[2021-11-26] MEDS: Chlorhexidine MOUTHWASH 0.12% 15 ML UDC TOPICAL SCH ×2 (08:18→15:03)
[2021-11-26] MEDS: Pantoprazole VIAL 40 MG VIAL IV SCH (08:18)
[2021-11-26] MEDS ORDERED: NS 0.9% 500 ml BAG 500 ML IV ONE (09:00)
[2021-11-26] MEDS: Acetaminophen IV 1 GM/100ML 100 ML IV PRN (21:30)
[2021-11-27] MEDS: Magic MouthWash1-BEN/MAAL/LIDO 180 ML BTL SWISH SWAL SCH ×5 (00:25→21:54)
[2021-11-27] MEDS: ZOSYN 3.375 GM Q8H per EXTENDED INFUSION IV SCH ×3 (00:25→15:44)
[2021-11-27 05:25] LABS: ABS Eosinophils 0.1 10^3/ul (0-0.6); ABS Lymphocytes 0.7 10^3/ul (1.0-4.8); ABS Monocytes 0.3 10^3/ul (0-0.8); ABS Neutrophils 2.4 10^3/ul (1.5-7.7); Eosinophil % 3.3 %; Hematocrit 26 % (35-47); Hemoglobin 8.6 g/dL (12.0-16.0); Lymphocyte % 20.5 %; Mean Corpuscular HGB Conc 33 g/dL (31-36); Mean Corpuscular Hemoglobin 29 pg (27-31); Mean Corpuscular Volume 88 fL (80-97); Mean Platelet Volume 6.8 fL (7.4-10.4); Nucleated Red Blood Cells % 0.1; Platelet Count 85 10^3/uL (150-450); Red Blood Count 2.98 10^6 /uL (3.70-4.87); Red Cell Distribution Width 16 % (10-15); White Blood Count 3.5 10^3/uL (3.5-10.8)
[2021-11-27 05:43] LABS: Albumin 2.2 g/dL (3.2-5.2); Calcium 7.7 mg/dL (8.6-10.3); Globulin 2.2 g/dL (2-4); Magnesium 1.9 mg/dL (1.9-2.7); Potassium 3.8 mmol/L (3.5-5.0); Total Bilirubin 0.8 mg/dL (0.2-1.0); Total Protein 4.4 g/dL (6.4-8.9); eGFR CKD-EPI 110.2 (>60)
[2021-11-27] MEDS: Pantoprazole VIAL 40 MG VIAL IV SCH (07:57)
[2021-11-27] MEDS ORDERED: KCL 20 MEQ/100 ML IVPREMIX 20 MEQ/100 ML BAG IV SCH (08:00)
[2021-11-27] MEDS: Chlorhexidine MOUTHWASH 0.12% 15 ML UDC TOPICAL SCH (09:12)
[2021-11-27] MEDS ORDERED: Ondansetron 4 mg VIAL 2 MG/ML 2 ml VIAL IV PRN (15:53)
[2021-11-27] MEDS: Saline FLUSH-CENTRAL 10 ML SYRINGE CENT\\PICC SCH (18:04)
[2021-11-28] MEDS: ZOSYN 3.375 GM Q8H per EXTENDED INFUSION IV SCH ×3 (00:09→16:04)
[2021-11-28] MEDS ORDERED: Polyethylene Glycol 3350 17 GM PACKET PO PRN ×2 (04:48→08:05)
[2021-11-28] MEDS: Saline FLUSH-CENTRAL 10 ML SYRINGE CENT\\PICC SCH ×2 (05:08→19:29)
[2021-11-28 05:24] LABS: Hematocrit 26 % (35-47); Hemoglobin 8.6 g/dL (12.0-16.0); Mean Corpuscular HGB Conc 33 g/dL (31-36); Mean Corpuscular Hemoglobin 29 pg (27-31); Mean Corpuscular Volume 89 fL (80-97); Mean Platelet Volume 6.7 fL (7.4-10.4); Platelet Count 109 10^3/uL (150-450); Red Blood Count 2.95 10^6 /uL (3.70-4.87); Red Cell Distribution Width 17 % (10-15); White Blood Count 3.5 10^3/uL (3.5-10.8)
[2021-11-28 05:41] LABS: ABS Eosinophils 0.1 10^3/ul (0-0.6); ABS Lymphocytes 0.8 10^3/ul (1.0-4.8); ABS Monocytes 0.3 10^3/ul (0-0.8); ABS Neutrophils 2.2 10^3/ul (1.5-7.7); Eosinophil % 3.1 %; Lymphocyte % 23.6 %; Nucleated Red Blood Cells % 0.1
[2021-11-28 06:07] LABS: Albumin 2.3 g/dL (3.2-5.2); Calcium 7.8 mg/dL (8.6-10.3); Globulin 2.2 g/dL (2-4); Magnesium 1.9 mg/dL (1.9-2.7); Potassium 3.9 mmol/L (3.5-5.0); Total Bilirubin 0.8 mg/dL (0.2-1.0); Total Protein 4.5 g/dL (6.4-8.9); eGFR CKD-EPI 108.5 (>60)
[2021-11-28] MEDS ORDERED: Senna TAB 8.6 mg TAB PO PRN (08:05)
[2021-11-28] MEDS ORDERED: Magnesium Hydroxide LIQ 30 ML UDC PO PRN ×2 (08:05→14:51)
[2021-11-28] MEDS: Magnesium Hydroxide LIQ 30 ML UDC PO SCH ×2 (08:32→20:27)
[2021-11-28] MEDS: Magic MouthWash1-BEN/MAAL/LIDO 180 ML BTL SWISH SWAL SCH ×4 (08:32→20:27)
[2021-11-28] MEDS: Acetaminophen IV 1 GM/100ML 100 ML IV PRN (13:27)
[2021-11-28 15:32] LABS: Corrected Retic Count 3.2 % (0.5-1.5); Hematocrit for Retic CNT 26 % (35-47); Immature Retic Fraction 0.69; RBC Retic Count 2.94 10^6/uL (3.70-4.87)
[2021-11-28 15:57] LABS: Direct Bilirubin 0.3 mg/dL (0.03-0.18); Indirect Bilirubin 0.5 mg/dL (0.3-1.0)
[2021-11-28] MEDS: CMCS: LINACLOTIDE 72 MCG CAP (NF) PO SCH (17:01)
[2021-11-29] MEDS: Saline FLUSH-CENTRAL 10 ML SYRINGE CENT\\PICC SCH ×2 (06:38→16:44)
[2021-11-29] MEDS: Magic MouthWash1-BEN/MAAL/LIDO 180 ML BTL SWISH SWAL SCH ×4 (08:40→20:14)
[2021-11-29] MEDS: Magnesium Hydroxide LIQ 30 ML UDC PO SCH ×2 (08:40→20:15)
[2021-11-29] MEDS: CMCS: LINACLOTIDE 72 MCG CAP (NF) PO SCH (08:43)
[2021-11-29 10:48] LABS: Albumin 2.7 g/dL (3.2-5.2); Calcium 8.2 mg/dL (8.6-10.3); Direct Bilirubin 0.3 mg/dL (0.03-0.18); Globulin 2.6 g/dL (2-4); Indirect Bilirubin 0.6 mg/dL (0.3-1.0); Magnesium 2.3 mg/dL (1.9-2.7); Potassium 4.2 mmol/L (3.5-5.0); Total Bilirubin 0.9 mg/dL (0.2-1.0); Total Protein 5.3 g/dL (6.4-8.9)
[2021-11-29 11:04] LABS: Hematocrit 30 % (35-47); Hemoglobin 9.6 g/dL (12.0-16.0); Mean Corpuscular HGB Conc 33 g/dL (31-36); Mean Corpuscular Hemoglobin 30 pg (27-31); Mean Corpuscular Volume 91 fL (80-97); Platelet Count 164 10^3/uL (150-450); Red Blood Count 3.24 10^6 /uL (3.70-4.87); Red Cell Distribution Width 18 % (10-15); White Blood Count 4.1 10^3/uL (3.5-10.8)
[2021-11-29 11:13] LABS: Folate 5.07 ng/mL (5.90-24.80)
[2021-11-30] MEDS: Saline FLUSH-CENTRAL 10 ML SYRINGE CENT\\PICC SCH ×2 (06:10→16:17)
[2021-11-30] MEDS: Magnesium Hydroxide LIQ 30 ML UDC PO SCH ×2 (08:58→21:52)
[2021-11-30] MEDS: Magic MouthWash1-BEN/MAAL/LIDO 180 ML BTL SWISH SWAL SCH ×4 (09:20→22:16)
[2021-11-30] MEDS: CMCS: LINACLOTIDE 72 MCG CAP (NF) PO SCH (09:20)
[2021-11-30] MEDS: Docusate LIQ 100 MG/10 ML UDC PO SCH (21:47)
[2021-11-30] MEDS ORDERED: Alteplase (CATHFLO) 2 MG VIAL IV ONE (21:55)
[2021-12-01 05:25] LABS: Hematocrit 30 % (35-47); Hemoglobin 9.8 g/dL (12.0-16.0); Mean Corpuscular HGB Conc 33 g/dL (31-36); Mean Corpuscular Hemoglobin 30 pg (27-31); Mean Corpuscular Volume 90 fL (80-97); Mean Platelet Volume 6.6 fL (7.4-10.4); Platelet Count 234 10^3/uL (150-450); Red Blood Count 3.28 10^6 /uL (3.70-4.87); Red Cell Distribution Width 18 % (10-15); White Blood Count 4.6 10^3/uL (3.5-10.8)
[2021-12-01] MEDS: Saline FLUSH-CENTRAL 10 ML SYRINGE CENT\\PICC SCH ×2 (05:36→17:26)
[2021-12-01 05:43] LABS: Albumin 2.7 g/dL (3.2-5.2); Albumin/Globulin Ratio 1.1 (1-3); Calcium 8.6 mg/dL (8.6-10.3); Globulin 2.4 g/dL (2-4); Phosphorus 4.1 mg/dL (2.5-5.0); Potassium 3.8 mmol/L (3.5-5.0); Total Bilirubin 0.8 mg/dL (0.2-1.0); Total Protein 5.1 g/dL (6.4-8.9); eGFR CKD-EPI 115.4 (>60)
[2021-12-01] MEDS ORDERED: Iodixanol (CONTRAST) 320 MG/ML 100 ML SDV IV ONE (09:30)
[2021-12-01] MEDS: Magnesium Hydroxide LIQ 30 ML UDC PO SCH ×2 (09:48→20:40)
[2021-12-01] MEDS: Docusate LIQ 100 MG/10 ML UDC PO SCH (09:48)
[2021-12-01] MEDS: Magic MouthWash1-BEN/MAAL/LIDO 180 ML BTL SWISH SWAL SCH ×6 (09:49→20:40)
[2021-12-01] MEDS: CMCS: LINACLOTIDE 72 MCG CAP (NF) PO SCH (09:51)
[2021-12-01 13:07] LABS: Copper Level 0.61 mcg/mL (0.75-1.45)
[2021-12-01] MEDS ORDERED: Magnesium CITRATE LIQ 300 ML BTL PO ONE (17:10)
[2021-12-01] MEDS ORDERED: Senna TAB 8.6 mg TAB PO SCH (21:00)
[2021-12-02] MEDS: Saline FLUSH-CENTRAL 10 ML SYRINGE CENT\\PICC SCH ×2 (06:36→18:30)
[2021-12-02] MEDS: Acetaminophen IV 1 GM/100ML 100 ML IV PRN (07:57)
[2021-12-02] MEDS ORDERED: Senna TAB 8.6 mg TAB PO PRN (08:21)
[2021-12-02] MEDS ORDERED: Magnesium Hydroxide LIQ 30 ML UDC PO PRN (08:22)
[2021-12-02] MEDS ORDERED: Polyethylene Glycol 3350 17 GM PACKET PO SCH (09:00)
[2021-12-02] MEDS: CMCS: LINACLOTIDE 72 MCG CAP (NF) PO SCH (09:22)
[2021-12-02] MEDS: Magic MouthWash1-BEN/MAAL/LIDO 180 ML BTL SWISH SWAL SCH ×4 (09:31→21:52)
[2021-12-03] MEDS: Saline FLUSH-CENTRAL 10 ML SYRINGE CENT\\PICC SCH ×2 (06:30→17:44)
[2021-12-03 06:55] LABS: ABS Eosinophils 0.1 10^3/ul (0-0.6); ABS Lymphocytes 1.4 10^3/ul (1.0-4.8); ABS Monocytes 0.5 10^3/ul (0-0.8); ABS Neutrophils 4.2 10^3/ul (1.5-7.7); Hematocrit 31 % (35-47); Hemoglobin 10.6 g/dL (12.0-16.0); Lymphocyte % 22.5 %; Mean Corpuscular HGB Conc 34 g/dL (31-36); Mean Corpuscular Hemoglobin 31 pg (27-31); Mean Corpuscular Volume 91 fL (80-97); Mean Platelet Volume 6.4 fL (7.4-10.4); Platelet Count 308 10^3/uL (150-450); Red Blood Count 3.43 10^6 /uL (3.70-4.87); Red Cell Distribution Width 20 % (10-15); White Blood Count 6.1 10^3/uL (3.5-10.8)
[2021-12-03 07:37] LABS: Albumin/Globulin Ratio 1.1 (1-3); Direct Bilirubin 0.3 mg/dL (0.03-0.18); Globulin 2.8 g/dL (2-4); Indirect Bilirubin 0.6 mg/dL (0.3-1.0); Total Bilirubin 0.9 mg/dL (0.2-1.0); Total Protein 5.8 g/dL (6.4-8.9)
[2021-12-03 08:16] LABS: C Reactive Protein 8.46 mg/L (<8.01)
[2021-12-03] MEDS ORDERED: Ondansetron SOLN ORALSYR 0.8 MG/ML PO PRN (11:00)
[2021-12-03] MEDS: CMCS: LINACLOTIDE 72 MCG CAP (NF) PO SCH (11:45)
[2021-12-03] MEDS: Magic MouthWash1-BEN/MAAL/LIDO 180 ML BTL SWISH SWAL SCH ×4 (11:50→21:38)
[2021-12-04] MEDS: Saline FLUSH-CENTRAL 10 ML SYRINGE CENT\\PICC SCH ×2 (06:32→17:28)
[2021-12-04] MEDS: CMCS: LINACLOTIDE 72 MCG CAP (NF) PO SCH (08:38)
[2021-12-04] MEDS: Magic MouthWash1-BEN/MAAL/LIDO 180 ML BTL SWISH SWAL SCH ×4 (08:56→22:51)
[2021-12-05] MEDS: Saline FLUSH-CENTRAL 10 ML SYRINGE CENT\\PICC SCH ×2 (06:29→16:02)
[2021-12-05] MEDS: CMCS: LINACLOTIDE 72 MCG CAP (NF) PO SCH (08:22)
[2021-12-05] MEDS: Magic MouthWash1-BEN/MAAL/LIDO 180 ML BTL SWISH SWAL SCH ×4 (08:45→22:00)
[2021-12-06] MEDS: Saline FLUSH-CENTRAL 10 ML SYRINGE CENT\\PICC SCH ×2 (06:00→16:54)
[2021-12-06] MEDS: Polyethylene Glycol 3350 17 GM PACKET PO PRN (09:54)
[2021-12-06] MEDS: CMCS: LINACLOTIDE 72 MCG CAP (NF) PO SCH (09:54)
[2021-12-06] MEDS: Magic MouthWash1-BEN/MAAL/LIDO 180 ML BTL SWISH SWAL SCH ×4 (10:22→23:17)
[2021-12-07] MEDS: Saline FLUSH-CENTRAL 10 ML SYRINGE CENT\\PICC SCH ×2 (05:52→17:26)
[2021-12-07 06:11] LABS: ABS Eosinophils 0.1 10^3/ul (0-0.6); ABS Lymphocytes 1.4 10^3/ul (1.0-4.8); ABS Monocytes 0.5 10^3/ul (0-0.8); ABS Neutrophils 2.2 10^3/ul (1.5-7.7); Eosinophil % 2.4 %; Hematocrit 32 % (35-47); Hemoglobin 10.5 g/dL (12.0-16.0); Lymphocyte % 33.8 %; Mean Corpuscular HGB Conc 33 g/dL (31-36); Mean Corpuscular Hemoglobin 30 pg (27-31); Mean Corpuscular Volume 92 fL (80-97); Mean Platelet Volume 6.2 fL (7.4-10.4); Nucleated Red Blood Cells % 0.1; Platelet Count 259 10^3/uL (150-450); Red Blood Count 3.46 10^6 /uL (3.70-4.87); Red Cell Distribution Width 20 % (10-15); White Blood Count 4.3 10^3/uL (3.5-10.8)
[2021-12-07 06:29] LABS: Albumin 2.7 g/dL (3.2-5.2); Albumin/Globulin Ratio 1.1 (1-3); Calcium 8.4 mg/dL (8.6-10.3); Globulin 2.5 g/dL (2-4); Potassium 3.7 mmol/L (3.5-5.0); Total Bilirubin 0.6 mg/dL (0.2-1.0); Total Protein 5.2 g/dL (6.4-8.9); eGFR CKD-EPI 107.5 (>60)
[2021-12-07] MEDS: Polyethylene Glycol 3350 17 GM PACKET PO PRN (08:13)
[2021-12-07] MEDS: CMCS: LINACLOTIDE 72 MCG CAP (NF) PO SCH (08:22)
[2021-12-07] MEDS: Magic MouthWash1-BEN/MAAL/LIDO 180 ML BTL SWISH SWAL SCH ×4 (08:34→23:09)
[2021-12-08] MEDS: Saline FLUSH-CENTRAL 10 ML SYRINGE CENT\\PICC SCH (06:38)
[2021-12-08] MEDS: Magic MouthWash1-BEN/MAAL/LIDO 180 ML BTL SWISH SWAL SCH ×2 (08:50→12:36)
[2021-12-08] MEDS: CMCS: LINACLOTIDE 72 MCG CAP (NF) PO SCH (08:50)
[2021-12-08 12:04] VITALS: BP 103/64
== END 2021-12-08 15:00 | DRG 871 ==
LOC: EDHOLD 13:05 → ED 13:05 → MED 22:30 → SUATTDRO 11-01 14:05 → ICU 11-21 04:33 → MEDTELE 11-27 19:14
PROVIDERS: ADMIT Internal Medicine; ATTEND Student in an Organized Health Care Education/Training Program
PROC: O.GIPEG (2021-11-19 10:40)